=== PATIENT | female | born 1960 | race Two or more races ===

== ENCOUNTER 2024-02-24 10:38 | Outpatient (REF) | payer MEDICAID, SELFPAY ==
[2024-02-24 14:45] LABS: MANUAL DIFF FLAG NO
[2024-02-24 14:51] LABS: Basophils Percent Auto 0.7 % (0-2); Eosinophils Absolute Auto 0.1 X10*3/uL (0.0-0.4); Eosinophils Percent Auto 1.4 % (0-4); Hematocrit 41.8 % (37.0-47.0); Hemoglobin 13.7 g/dl (12.0-16.0); Imm Gran Abs Auto 0.01 X10*3/uL (0.00-0.03); Imm Gran Pct Auto 0.2 % (0.0-0.4); Lymphocytes Absolute Auto 1.1 X10*3/uL (1.2-4.9); Lymphocytes Percent Auto 18.4 % (20-40); Mean Corpuscular HGB Conc 32.8 g/dl (31.0-35.0); Mean Corpuscular Volume 91.5 fL (80.0-98.0); Mean Platelet Volume 10.9 fL (9.4-12.3); Monocytes Absolute Auto 0.4 X10*3/uL (0.1-1.2); Monocytes Percent Auto 6.3 % (2-11); Neutrophils Absolute Auto 4.3 x10*3/uL (2.0-8.3); Platelet Count 179 X10*3/uL (160-400); Red Blood Count 4.57 X10*6/uL (4.20-5.50); White Blood Count 5.9 X10*3/uL (4.8-10.8)
[2024-02-24 16:39] LABS: Alanine Aminotransferase 18 U/L (0-31); Alkaline Phosphatase 57 U/L (39-117); Anion Gap 12 (12-20); Aspartate Amino Transferase 24 U/L (5-31); Bilirubin Total 0.5 mg/dL (0.0-1.0); Blood Urea Nitrogen 24 mg/dL (9-16); Carbon Dioxide 28 mmol/L (22-29); Chloride 106 mmol/L (96-108); Cholesterol 330 mg/dL (<200); Estimated Glomerular Filt Rate 54; Glucose Random 93 mg/dL (60-115); HDL Cholesterol 60 mg/dL (>40); LDL Cholesterol Calculated 240 mg/dL (<100); Sodium 141 mmol/L (135-145); TSH reflex Free T4 1.09 uIU/mL (0.32-4.0); Triglycerides 150 mg/dL (<150)
[2024-02-25 03:57] LABS: HIV AB/AG Nonreactive (Nonreactive); HIV Num 1 0.05 S/CO (0.00-0.99); ~HepC Num1 0.08 S/CO (0.00-0.79); ~Hepatitis C Antibody Nonreactive (Nonreactive)
== END 2024-02-24 10:39 | disposition home or self-care (01) ==
LOC: HO.CHCLDS 10:38
PROVIDERS: Visit Provider Internal Medicine
DX: Z00.00 Encounter for general adult medical examination without abnormal findings (principal)
CPT/HCPCS: 36415; 80053; 80061; 84443; 85025; 86803; 87389

== ENCOUNTER 2024-04-29 10:55 | Outpatient (REF) | payer MEDICAID, SELFPAY ==
[2024-04-29 14:48] LABS: Cholesterol 298 mg/dL (<200); HDL Cholesterol 57 mg/dL (>40); LDL Cholesterol Calculated 220 mg/dL (<100); Triglycerides 105 mg/dL (<150)
== END 2024-04-29 10:56 | disposition home or self-care (01) ==
LOC: HO.CHCLDS 10:55
PROVIDERS: Visit Provider Internal Medicine
DX: E78.00 Pure hypercholesterolemia, unspecified (principal)
CPT/HCPCS: 36415; 80061

== ENCOUNTER 2024-05-07 16:26 | Outpatient (REF) | payer MEDICAID, SELFPAY | END 2024-05-07 16:27 | disposition home or self-care (01) | LOC: HO.CHCLNP 16:26 | PROVIDERS: Visit Provider Internal Medicine | DX: J02.9 Acute pharyngitis, unspecified (principal) | CPT/HCPCS: 87070 ==

== ENCOUNTER 2024-05-20 13:50 | Outpatient (REF) | payer MEDICAID, SELFPAY ==
[2024-05-20 14:40] LABS: MANUAL DIFF FLAG NO
[2024-05-20 14:43] LABS: Basophils Absolute Auto 0.1 X10*3/uL (0.0-0.2); Basophils Percent Auto 0.6 % (0-2); Eosinophils Absolute Auto 0.1 X10*3/uL (0.0-0.4); Eosinophils Percent Auto 1.6 % (0-4); Hematocrit 39.2 % (37.0-47.0); Hemoglobin 12.7 g/dl (12.0-16.0); Imm Gran Abs Auto 0.02 X10*3/uL (0.00-0.03); Imm Gran Pct Auto 0.2 % (0.0-0.4); Lymphocytes Absolute Auto 1.7 X10*3/uL (1.2-4.9); Lymphocytes Percent Auto 20.8 % (20-40); Mean Corpuscular HGB Conc 32.4 g/dl (31.0-35.0); Mean Corpuscular Hemoglobin 28.9 pg (27.0-33.0); Mean Corpuscular Volume 89.1 fL (80.0-98.0); Mean Platelet Volume 9.9 fL (9.4-12.3); Monocytes Absolute Auto 0.6 X10*3/uL (0.1-1.2); Monocytes Percent Auto 7.2 % (2-11); Neutrophils Absolute Auto 5.6 x10*3/uL (2.0-8.3); Neutrophils Percent Auto 69.6 % (45-73); Platelet Count 255 X10*3/uL (160-400); Red Cell Distribution Width 11.6 % (11.0-16.0)
[2024-05-20 15:21] LABS: Erythrocyte Sedimentation Rate 67 MM/HR (0-20)
[2024-05-20 15:43] LABS: TSH reflex Free T4 < 0.01 uIU/mL (0.32-4.0)
--- OUTSIDE RECORDS SUMMARY | 2024-05-20 16:05 | XMS_ITS | Encounter Summary ---
Author Organization [employer] Address [address] 7[address] [place] [address] Care Team Providers Care Pediatrician Name Role Phone Shahana Kidd MD Primary Care Provider [phone] Reason for Visit * Reason Onset Date Comments Results 05/13/2024 Encounter Details Date Type Department Care Team ([facility] st Contact Info) Description 05/13/2024 Telephone [facility] MED & PEDS [address] [place] [address] Grisel Anton, HERMILO Results Social History Tobacco Use Types Packs/Day Years Used Date Smoking Tobacco: Never Smokeless Tobacco: Never Alcohol Use Standard Drinks/Week Comments Never 0 (1 standard drink = 0.6 oz pur e alcohol) Alcohol Answer Date Recorded Q1: How often do you have a drink containing alc ohol? 2 02/19/2024 Q2: How many drinks containi ng alcohol do you have on a typical day when you are drinking? 0 02/19/2024 Q3: How often do you have six or more drinks on one occasion? 1 02/19/2024 Depression Answer Date Recorded Patient Health Questionnaire-9 Score 2 02/19/2024 Patient Health Questionnaire-9 Score 2 02/19/2024 Last PHQ-9: Questionnaire Data Not on file 1 Housing Stability Answer Date Recorded What is your housing situation today? Not on jayson e 02/19/[address] you li ve. Do you have problems with any of the following? None of the above 02/19/2024 Food Insecurity Answer Date Recorded Within the past 12 months, y ou worried that your food would run out before you got money to buy more: Never True 02/19/2024 Within the past 12 months,th e food you bought just didn't last and you didn't have enough money to get more: Never True Transportation Answer Date Recorded In the past 12 months, has l ack of transportation kept you from medical appts, meetings, work or from getting things needed for daily living? No 02/19/2024 Utilities Answer Date Recorded In the past 12 months, has t he electric, gas, oil or water company threatened to shut off services in your home? No 02/19/2024 Depression Answer Date Recorded Patient Health Questionnaire-2 Score 1 02/19/2024 Internet Access Answer Date Recorded Internet Access Q1 Yes 02/19/2024 Internet Access Q2 Not on file 02/19/2024 Comments Unknown Sex and Gender Information Value Date Recorded Sex Assigned at Female 02/19/2022 10:22 AM EDT Legal Sex Female 10:22 AM EDT Gender Identity Female 02/19/2022 10:22 AM EDT Sexual Orientation Straight 02/19/2022 10 :22 AM EDT documented as of this encounter Miscellaneous Notes * Telephone Encounter - Grisel Anton RN - 05/13/2024 3:57 PM EST TC placed to pt and LVM to call back the office in regards to result message below ----- Message from Celsa Velarde MD sent at 05/13/2024 2:00 PM EST ----- Please inform Kandy her throat culture did not demonstrate a strep throat infection. documented in this encounter Plan of Treatment Not on file documented as of this encounter Visit Diagnoses Not on filedocumented in this encounter Additional Health Concerns Assessment Noted Time PHQ-9 Depression Total Score: 2 02/19/20 24 10:03 AM EDT documented as of this encounter Care Teams Pediatrician Relationship Specialty Start Date End Date Shahana Kidd MD [address] [place] [phone] PCP - General Internal Medicine 06/13/20 documented as of this encounter
--- OUTSIDE RECORDS SUMMARY | 2024-05-20 16:05 | XMS_ITS | Encounter Summary ---
Author Organization [employer] Address [address] [facility] 7 [place] [address] Care Team Providers Care Appellate Court Judge Name Role Phone Shahana Kidd MD Primary Care Provider [phone] Encounter Details Date Type Department Care Team (Latest Contact Info) Description 02/25/[address] [facility] CH[facility] MED & PEDS [address] [place], [place] [phone] Shahana Kidd MD [address] [place] [address] Hypercholesterolemia (Primary Dx) Social History Tobacco Use Types Packs/Day Years [...] AM EDT documented as of this encounter Plan of Treatment Not on file documented as of this encounter Procedures Procedure Name Priority Date/Time Associated Diagnosis Comments LIPID PANEL, STANDARD Routine 04/29/2024 10:56 AM EST Hypercholesterolemi a documented in this encounter Results * (ABNORMAL) Lipid Panel, Standard (04/29/2024 10:56 AM EST) Triglycerides 105 <150 mg/dL [facility] Comment:Desirable Triglyceri de: less than 150 mg/dLBorderline High Triglyceride 150-199 mg/dLHigh Triglyceride: 200-499 mg/dLVery High Triglyceride: greater than or equal to 5OO mg/dL Cholesterol 298(H) <200 mg/dL [facility] Comment:Desirable Cholestero l: less than 200 mg/dLBorderline High Cholesterol: 200-239 mg/dLHigh Cholesterol: greater than 239 mg/dL LDL Cholesterol Calculated 220(H) <100 mg/dL [facility] Comment:Desirable LDL: less than 100 mg/dLNear Optimal/Above Optimal LDL: 110- 129 mg/dLBorderline High LDL: 130-159 mg/dLHigh LDL: 160-189 mg/dLVery High LDL: greater than or equal to 190 mg/dL HDL Cholesterol 57 >40 mg/dL [facility] Comment:Desirable HDL: great er than 40 mg/dL Note: This HDL assay may give artificially low results in patients with liver disease. Blood Venous blood specimen / Unknown 04/29/2024 10:56 AM EST 04/29/2024 2:17 PM EST us Shahana Kidd MD LAB BLOOD ORDERABLES Final Result [facility] [address] [place] [address] [phone] documented in this encounter Visit Diagnoses Diagnosis Hypercholesterolemia- Primary Pure hypercholesterolemia documented in this encounter Additional Health Concerns Assessment Noted Time PHQ-9 Depression Total Score: 2 02/19/20 24 10:03 AM EDT documented as of this encounter Care Teams Appellate Court Judge Relationship Specialty Start Date End Date Shahana Kidd MD [address] [place] [phone] PCP - General Internal Medicine 06/13/20 documented as of this encounter
--- OUTSIDE RECORDS SUMMARY | 2024-05-20 16:05 | XMS_ITS | Encounter Summary ---
Author Organization [employer] Address [address] [facility] 7 [place] [address] Care Team Providers Care Sdv Pilot/Navigator/Dds Operator Name Role Phone Shahana Kidd MD Primary Care Provider [phone]- [phone] Encounter Details Date Type Department Care Team ([facility] st Contact Info) Description 10/03/2023 Orders Only [facility] CH[facility] MED & PEDS [address] [place], [place] [phone] Shahana Kidd MD [address] [place] [address] Allergy, subsequent encounter Social History Tobacco Use Types Packs/Day Years Used Date Smoking Tobacco: Never Smokeless Tobacco: Never Alcohol Use Standard Drinks/Week Comments Never 0 (1 standard drink = 0.6 oz pur e alcohol) Alcohol Answer Date Recorded How often do you have a drink containing alcohol ? 0 04/24/2022 How many drinks containing a lcohol do you have on a typical day when you are drinking? 0 04/24/2022 How often do you have six or more drinks on one occasion? 0 04/24/2022 Depression Answer Date Recorded Patient Health Questionnaire-9 Score 0 04/24/2022 Depression Answer Date Recorded Patient Health Questionnaire-2 Score 0 04/24/2022 Comments Unknown Sex and Gender Information Value Date Recorded Sex Assigned at Female 02/19/2022 10:22 AM EDT Legal Sex Female 10:22 AM EDT Gender Identity Female 02/19/2022 10:22 AM EDT Sexual Orientation Straight 02/19/2022 10 :22 AM EDT documented as of this encounter Plan of Treatment Not on file documented as of this encounter Visit Diagnoses Diagnosis Allergy, subsequent encounter documented in this encounter Additional Health Concerns Assessment Noted Time PHQ-9 Depression Total Score: 0 04/24/19 9:38 AM EST documented as of this encounter Care Teams Sdv Pilot/Navigator/Dds Operator Relationship Specialty Start Date End Date Shahana Kidd MD [address] [place] [address] PCP - General Internal Medicine 06/13/20 documented as of this encounter
--- OUTSIDE RECORDS SUMMARY | 2024-05-20 16:05 | XMS_ITS | Clinical Summary ---
Author Organization [facility] [facility] it Address [address] [place] [address] Care Team Providers Care Cytologist Name Role Phone Unavailable Primary Care Provider Unavailabl e Social History Tobacco Use Types Packs/Day Years Used Date Smoking Tobacco: Never Assessed Sex and Gender Information Value Date Recorded Sex Assigned at Not on file Gender Identity Not on file Sexual Orientation Not on file Plan of Treatment Health Maintenance Due Date Last Done Comments Breast Cancer Screening 1960 DTaP,Tdap,and Td Vaccines (1 - Tdap) 07/28/1979 Cervical Cancer Screening: P ap Smear 1981 Zoster Vaccines (1 of 2) 2010 COVID-19 Vaccine (2023-2 5 season) 2023 Influenza Vaccine (#1) 2023 RSV Immunization Patients 60 + Years Old (1 - 1-dose 75+ series) 07/28/2035 HIB Vaccines Aged Out No longer eligi ble based on patient's age to complete this topic HPV Vaccines Aged Out No longer eligi ble based on patient's age to complete this topic Hepatitis A Vaccines Aged Out No long er eligible based on patient's age to complete this topic Hepatitis B Vaccines Aged Out No long er eligible based on patient's age to complete this topic IPV Vaccines Aged Out No longer eligi ble based on patient's age to complete this topic MMR Vaccines Aged Out No longer eligi ble based on patient's age to complete this topic Meningococcal ACWY Vaccine Aged Out N o longer eligible based on patient's age to complete this topic Pneumococcal Vaccine: Pediat rics (0 to 5 Years) and At-Risk Patients (6 to 64 Years) Aged Out No longer eligible b ased on patient's age to complete this topic RSV Immunization Patients Un omi 20 months Aged Out No longer eligible b ased on patient's age to complete this topic Varicella Vaccines Aged Out No longer eligible based on patient's age to complete this topic
--- OUTSIDE RECORDS SUMMARY | 2024-05-20 16:05 | XMS_ITS | Encounter Summary ---
Author Organization [employer] Address [address] [place] [address] [place] [address] Care Team Providers Care Information Services Consultant Name Role Phone Shahana iKdd MD Primary Care Provider [phone] Reason for Visit * Reason Comments Med Refill Encounter Details Date Type Department Care Team ([facility] st Contact Info) Description 06/28/2023 Refill [facility] CHC MED & PEDS [address] [place] [address] Shahana Kidd MD [address] [place] [address] Allergy, subsequent encounter Social History Tobacco Use [...] Time PHQ-9 Depression Total Score: 0 04/24/19 23 9:38 AM EST documented as of this encounter Care Teams Information Services Consultant Relationship Specialty Start Date End Date Shahana Kidd MD [address] [place] [phone] PCP - General Internal Medicine 06/13/20 documented as of this encounter
--- OUTSIDE RECORDS SUMMARY | 2024-05-20 16:06 | XMS_ITS | Encounter Summary ---
Author Organization [employer] Address [address] [facility] 7 [place] [address] Care Team Providers Care Speech And Language Specialist Name Role Phone Shahana Kidd MD Primary Care Provider [phone]- [phone] Encounter Details Date Type Department Care Team (Latest Contact Info) Description 05/01/2024 Orders Only [facility] CHC MED & PEDS [address] [place], [place] [phone] Shahana Kidd MD [address] [place] [address] Hypercholesterolemia (Primary Dx) Social History Tobacco Use [...] as of this encounter Plan of Treatment Scheduled Orders Name Type Priority Associated Diagnoses Orde r Schedule Lipid Panel, Standard Lab Routine Hypercholesterolemia Expected: 05/01/2024 (Approximate), Expires: 05/01/2025 documented as of this encounter Visit Diagnoses Diagnosis Hypercholesterolemia- Primary Pure hypercholesterolemia documented in this encounter Additional Health Concerns Assessment Noted Time PHQ-9 Depression Total Score: 2 02/19/20 24 10:03 AM EDT documented as of this encounter Care Teams Speech And Language Specialist Relationship Specialty Start Date End Date Shahana Kidd MD [address] [place] [phone] PCP - General Internal Medicine 06/13/20 documented as of this encounter
--- OUTSIDE RECORDS SUMMARY | 2024-05-20 16:06 | XMS_ITS | Encounter Summary ---
Author Organization [employer] Address [address] [facility] [address] 7[address] [place] [address] Care Team Providers Care Ed Case Manager Name Role Phone Shahana Kidd MD Primary Care Provider +1 [phone] Encounter Details Date Type Department Care Team (Latest Contact Info) Description 05/20/2024 Travel Social History Tobacco Use Types Packs/Day Years [...] documented as of this encounter Care Teams Ed Case Manager Relationship Specialty Start Date End Date Shahana Kidd MD [address] [place] [phone] PCP - General Internal Medicine 06/13/20 documented as of this encounter
--- OUTSIDE RECORDS SUMMARY | 2024-05-20 16:06 | XMS_ITS | Encounter Summary ---
Author Organization [employer] Address [address] [facility] 7 [place] [address] Care Team Providers Care Fertilizer Applicator Name Role Phone Shahana Kidd MD Primary Care Provider [phone]- [phone] Reason for Visit * Reason Onset Date Comments Lab Results 05/01/2024 Encounter Details Date Type Department Care Team (Late st Contact Info) Description 05/01/2024 Telephone [facility] [address] [place] [address] Shahana Kidd MD [address] [place], [place] [phone] Lab Results Social History Tobacco Use Types Packs/Day [...] encounter Miscellaneous Notes * Telephone Encounter - Karyn Santoyo RN - 05/01/2024 1:22 PM EST TC to pt re below message from Dr Kidd : Please call. Labs reviewed. Very high cholesterol. The dose of atorvastatin will be increased to 80 mg once a day. Repeat lipid panel in 3 months. No answer, message left requesting call back. documented in this encounter Plan of Treatment Not on file documented as of this encounter Visit Diagnoses Not on filedocumented in this encounter Additional Health Concerns Assessment Noted Time PHQ-9 Depression Total Score: 2 02/19/20 24 10:03 AM EDT documented as of this encounter Care Teams Fertilizer Applicator Relationship Specialty Start Date End Date Shahana Kidd MD [address] [place] [phone] PCP - General Internal Medicine 06/13/20 documented as of this encounter
--- OUTSIDE RECORDS SUMMARY | 2024-05-20 16:06 | XMS_ITS | Encounter Summary ---
Author Organization [employer] Address [address] [place] [address] [place] [address] Care Team Providers Care Feed Inspection Supervisor Name Role Phone Shahana Kidd MD Primary Care Provider [phone]- [phone] Reason for Referral * Imaging (Routine) - Authorized Specialty Diagnoses / Procedures Referred By Contac t Referred To Contact Radiology Diagnoses Tenderness of neck Procedures US Head Neck Soft Tissue Shahana Kidd MD [address] [place] [phone] Phone: tel: fax: [facility] [address] [place] [phone] Phone: tel: fax: Referral ID Status Reason Start Date Expiration Date V isits Requested Visits Authorized [id number] Authorized 05/20/2024 05/20/2025 1 1 Reason for Visit * Reason Comments Neck Pain Encounter Details Date Type Department Care Team ([facility] st Contact Info) Description 05/20/2024 1:20 PM EST Office Visit [facility] CHC MED & PEDS [address] [place], [place] [phone] Shahana Kidd MD [address] [place] [phone] Tenderness of neck (Primary Dx) Social History Tobacco Use Types [...] AM EDT documented as of this encounter Last Filed Vital Signs Vital Sign Reading Time Taken Comments Blood Pressure 118/72 05/20/2024 1:10 PM EST Pulse 71 05/20/2024 1:10 PM EST Temperature 36.7 ??C (98 ??F) 05/20/2024 1:10 PM EST Respiratory Rate 20 05/20/2024 1:10 PM EST Oxygen Saturation 98% 05/20/2024 1:10 PM EST Inhaled Oxygen Concentration - - Weight 69.4 kg (153 lb) 05/20/2024 1:10 PM EST Height 160 cm (5' 3 ) 05/20/2024 1:10 PM EST Body Mass Index 27.1 05/20/2024 1:10 PM EST documented in this encounter Plan of Treatment Scheduled Orders Name Type Priority Associated Diagnoses Orde r Schedule US Head Neck Soft Tissue Imaging Routine Tenderness of neck Expected: 05/20/2024, Expires: 05/20/2025 documented as of this encounter Procedures Procedure Name Priority Date/Time Associated Diagnosis Comments TSH W/REFLEX TO FT4 Routine 05/20/2024 1 :51 PM EST Tenderness of neck CBC WITH AUTO DIFFERENTIAL Routine 05/20/2024 1:51 PM EST Tenderness of neck SED RATE BY MODIFIED WESTERGREN Routine 05/20/2024 1:51 PM EST Tenderness of neck C-REACTIVE PROTEIN Routine 05/20/2024 1: 51 PM EST Tenderness of neck documented in this encounter Results * (ABNORMAL) TSH W/Reflex to FT4 (05/20/2024 1:51 PM EST) TSH reflex Free T4 <0.01(L) 0.32 - 4.0 uIU/mL [facility] Blood Venous blood specimen / Unknown 05/20/2024 1:51 PM EST 05/20/2024 2:37 PM EST us Shahana Kidd MD LAB BLOOD ORDERABLES Final Result [facility] [address] [place] [phone] * (ABNORMAL) C-reactive Protein (05/20/2024 1:51 PM EST) [facility] C Reactive Protein 4.00(H) < or = 0.50 mg/dL [facility] Blood Venous blood specimen / Unknown 05/20/2024 1:51 PM EST 05/20/2024 2:37 PM EST Shahana Kidd MD LAB BLOOD ORDERABLES Final Result Performing Organization Address [facility] Co de Phone Number [facility] [address] [place] [phone] * (ABNORMAL) Sed Rate by Modified Harsharen (05/20/2024 1:51 PM EST) [facility] Erythrocyte Sedimentation Rate 67(H) 0 - 20 MM/HR [facility] Comment:Patients with polycy themia and many hemoglobin abnormalitiesmay have depressed sed rates whereas patients with anemiamay have elevated sed rates. Blood Venous blood specimen / Unknown 05/20/2024 1:51 PM EST 05/20/2024 2:37 PM EST us Shahana Kidd MD LAB BLOOD ORDERABLES Final Result Performing Organization Address [facility] de Phone Number [facility] [address] [place] [phone] * CBC auto differential (05/20/2024 1:51 PM EST) [facility] White Blood Count 8.0 4.8 - 10.8 X10*3/uL [facility] Red Blood Count 4.40 4.20 - 5.50 X10*6/uL [facility] Hemoglobin 12.7 12.0 - 16.0 g/dl [facility] Hematocrit 39.2 37.0 - 47.0 % [facility] Mean Corpuscular Volume 89.1 80.0 - 98.0 fL [facility] Mean Corpuscular Hemoglobin 28.9 27.0 - 33.0 pg [facility] Mean Corpuscular HGB Conc 32.4 31.0 - 35.0 g/dl [facility] Red Cell Distribution Width 11.6 11.0 - 16.0 % [facility] Platelet Count 255 160 - 400 X10*3/uL [facility] Mean Platelet Volume 9.9 9.4 - 12.3 fL [facility] Neutrophils Percent Auto 69.6 45 - 73 % [facility] Imm Gran Pct Auto 0.2 0.0 - 0.4 % [facility] Lymphocytes Percent Auto 20.8 20 - 40 % [facility] Monocytes Percent Auto 7.2 2 - 11 % [facility] Eosinophils Percent Auto 1.6 0 - 4 % [facility] Basophils Percent Auto 0.6 0 - 2 % [facility] NRBC Pct Auto 0.0 0.0 - 0.2 /100WBC [facility] Neutrophils Absolute Auto 5.6 2.0 - 8.3 x10*3/uL [facility] Imm Gran Abs Auto 0.02 0.00 - 0.03 X10*3/uL [facility] Lymphocytes Absolute Auto 1.7 1.2 - 4.9 X10*3/uL [facility] Monocytes Absolute Auto 0.6 0.1 - 1.2 X10*3/uL [facility] Eosinophils Absolute Auto 0.1 0.0 - 0.4 X10*3/uL [facility] Basophils Absolute Auto 0.1 0.0 - 0.2 X10*3/uL [facility] NRBC Abs Auto 0.000 0.0 - 0.012 X10*3/uL [facility] Blood Venous blood specimen / Unknown 05/20/2024 1:51 PM EST 05/20/2024 2:37 PM EST us Shahana Kidd MD LAB BLOOD ORDERABLES Final Result [facility] [address] [place] [address] [phone] documented in this encounter Visit Diagnoses Diagnosis Tenderness of neck- Primary documented in this encounter Additional Health Concerns Assessment Noted Time PHQ-9 Depression Total Score: 2 02/19/20 24 10:03 AM EDT documented as of this encounter Care Teams Feed Inspection Supervisor Relationship Specialty Start Date End Date Shahana Kidd MD [address] [place] [phone] PCP - General Internal Medicine 06/13/20 documented as of this encounter
--- OUTSIDE RECORDS SUMMARY | 2024-05-20 16:06 | XMS_ITS | Clinical Summary ---
Author Organization [employer] Address [address] [facility] [address] [place] [address] Care Team Providers Care Enamel Burner Name Role Phone Shahana Kidd MD Primary Care Provider [phone] Allergies No known active allergies Medications cetirizine (ZyrTEC) 10 MG tabletIndicatio ns:Allergy, subsequent encounter Take 1 tablet (10 mg) by mouth Once per day. 30 tablet 10/03/19 24 025 Active fluticasone (Flonase) 50 MCG/ACT nasal sprayIndication s:Allergy, subsequent encounter Administer 1 spray into each nostril 2 times daily. Shake gently. Before first use, prime pump. After use, clean tip and replace cap. 16 g 10/03/19 24 Active atorvastatin (Lipitor) 80 MG tabletIndicatio ns:Hypercholest erolemia Take 1 tablet (80 mg) by mouth Once per day. 30 tablet 05/01/19 25 026 Active naproxen (Naprosyn) 500 MG tabletIndicatio ns:Tenderness of neck Take 1 tablet (500 mg) by mouth 2 times daily. 60 tablet 05/20/19 25 025 Active atorvastatin (Lipitor) 40 MG tabletIndicatio ns:Hypercholest erolemia Take 1 tablet (40 mg) by mouth Once per day. 30 tablet 02/25/20 24 025 Discontinued amoxicillin-cla vulanate (Augmentin) 875-125 MG tabletIndicatio ns:Acute otitis externa of left ear, unspecified type Take 1 tablet by mouth 2 times daily for 5 days. 10 tablet 05/07/19 25 025 Active Problems Problem Noted Date Diagnosed Date Hypercholesterolemia 02/25/2024 Allergy 11/05/1992 Encounters Date Type Department Care Team Description 05/20/2024 1:20 PM EST Office Visit [facility] [address] [place] [address] Shahana Kidd MD Tenderness of neck (Primary Dx) 05/20/2024 Travel 05/13/2024 Telephone [facility] [address] [place] [address] Grisel Anton RN Results 05/07/2024 2:00 PM EST Office Visit [facility] [address] [place] [address] Celsa Velarde MD Acute otitis externa of left ear, unspecified type (Primary Dx); Pharyngitis, unspecified etiology 05/07/2024 Travel 05/01/2024 Telephone [facility] [address] [place] [address] Shahana Kidd MD Lab Results 05/01/2024 Orders Only [facility] [address] [place] [address] Shahana Kidd MD Hypercholesterolemia (Primary Dx) 02/25/2024 Telephone [facility] [address] [place] [address] Shahana Kidd MD Lab Results 02/25/2024 Orders Only [facility] [address] [place] [address] Shahana Kidd MD Hypercholesterolemia (Primary Dx) 02/19/2024 10:00 AM EDT Office Visit [facility] [address] [place] [address] Shahana Kidd MD Annual physical exam (Primary Dx); Encounter for screening mammogram for breast cancer; Screening for colon cancer; Encounter for immunization 02/19/2024 Travel from Last 3 Months Immunizations Name Administration Dates Next Due Influenza injectable quadrivalent preservative f ree 02/19/2018 Influenza, Split (incl. purified surface antigen ) 04/02/2013 Influenza, seasonal, injectable, preservative fr ee 02/19/2024,04/24/2022 Moderna Covid-19 Vaccine 6+ Bivalent 05/28/2022 Tdap 05/15/2021,09/20/2009 Family History Medical History Relation Name Comments Lung cancer Father Bone cancer Father's Sister Relation Name Status Comments Father Father's Sister Social History Tobacco Use Types Packs/Day Years Used Date Smoking Tobacco: Never Smokeless Tobacco: Never Tobacco Cessation:Counseling Given: No Alcohol Use Standard Drinks/Week Comments Never 0 [...] Orientation Straight 02/19/2022 10 :22 AM EDT Last Filed Vital Signs Vital Sign Reading [...] Mass Index 27.1 05/20/2024 1:10 PM EST Plan of Treatment Health Maintenance Due Date Last Done Comments CT Colonography 1960 Colonoscopy 1960 FIT 1960 FOBT 1960 SDOH Screening 1960 Sigmoidoscopy 1960 Mammogram 2000 Pneumococcal Vaccine: 50+ Years (1 of 1 - PCV) 2010 Zoster Vaccines (1 of 2) 2010 COVID-19 Vaccine ( season) 2023 05/28/2022, 04/27/2021, 08/10/2020, Additional history exists Alcohol/Substance Use Screening 02/18/2025 02/19/2024 Depression Screening 02/18/2025 02/19/2024, 02/19/20 24 Pap Smear 05/08/2025 05/08/2022 Tobacco Screening 05/20/2025 05/20/2024 Colorectal Cancer Screening 04/29/2027 FIT DNA/Cologuard 04/29/2027 04/29/2024 Cervical Cancer Screening 05/08/2027 HPV/Cotest 05/08/2027 05/08/2022 DTaP/Tdap/Td Vaccines (3 - Td or Tdap) 05/15/2031 05/15/2021, 09/20/2009 RSV Patients and Patients Aged 60 years or older (1 - 1-dose 75+ series) 07/28/2035 Influenza Vaccine Completed 02/19/2024, , 02/19/2018, Additional history exists HIV Screening Completed 02/24/2024, 05/15/2021 Hepatitis C Screening Completed 02/24/2024, 022 HIB Vaccines Aged Out No longer eligi [...] patient's age to complete this topic Meningococcal Vaccine Aged Out No damaso carmen eligible based on patient's age to complete this topic RSV under 20 months Aged Out No longe r eligible based on patient's age to complete this topic Rotavirus Vaccines Aged Out No longer eligible based on patient's age to complete this topic Procedures Procedure Name Priority Date/Time Associated Diagnosis Comments TSH W/REFLEX TO FT4 Routine 05/20/2024 1 :51 PM EST Tenderness of neck C-REACTIVE PROTEIN Routine 05/20/2024 1: 51 PM EST Tenderness of neck SED RATE BY MODIFIED WESTERGREN Routine 05/20/2024 1:51 PM EST Tenderness of neck CBC WITH AUTO DIFFERENTIAL Routine 05/20/2024 1:51 PM EST Tenderness of neck CULTURE, THROAT Routine 05/07/2024 3:36 PM EST Pharyngitis, unspecified etiology POC HERNÁNDEZ ID NOW STREP A Routine 05/07/2024 3:05 PM EST Pharyngitis, unspecified etiology POCT RAPID COVID ANTIGEN Routine 05/07/2024 3:05 PM EST Pharyngitis, unspecified etiology LIPID PANEL, STANDARD Routine 04/29/2024 10:56 AM EST Hypercholesterolemi a LAB COLOGUARD?? COLON CANCER SCREEN Routine 04/29/2024 8:15 AM EST Screening for colon cancer HEPATITIS C AB W/REFL TO HCV RNA, QN, PCR Routine 02/24/2024 10:41 AM EST Annual physical exam HIV 1/2 ANTIGEN/ANTIBODY, FOURTH GENERATION W/RFL Routine 02/24/2024 10:41 AM EST Annual physical exam CBC WITH AUTO DIFFERENTIAL Routine 02/24/2024 10:41 AM EST Annual physical exam TSH W/REFLEX TO FT4 Routine 02/24/2024 9 :42 AM EST Annual physical exam LIPID PANEL, STANDARD Routine 02/24/2024 9:42 AM EST Annual physical exam COMPREHENSIVE METABOLIC PANEL Routine 02/24/2024 9:42 AM EST Annual physical exam THINPREP PAP AND HPV MRNA E6/E7 Routine 05/08/2022 12:00 AM EST from Last 3 Months or Most Recently Relevant to Health Maintenance Results * (ABNORMAL) TSH W/Reflex to FT4 (05/20/2024 1:51 PM EST) Only the most recent of2 resultswithin the time period is included. TSH reflex Free T4 <0.01(L) 0.32 - 4.0 uIU/mL [facility] Blood Venous blood specimen / Unknown 05/20/2024 1:51 PM EST 05/20/2024 2:37 PM EST us Shahana Kidd MD LAB BLOOD ORDERABLES Final Result [facility] [address] [place] [address] [phone] * CBC auto differential (05/20/2024 1:51 PM EST) Only the most recent of2 resultswithin the time period is included. White Blood Count 8.0 4.8 - 10.8 X10*3/uL [facility] Red Blood Count 4.40 4.20 - 5.50 X10*6/uL [facility] Hemoglobin 12.7 12.0 - 16.0 g/dl [facility] Hematocrit 39.2 37.0 - 47.0 % [facility] Mean Corpuscular Volume 89.1 80.0 - 98.0 fL [facility] Mean Corpuscular Hemoglobin 28.9 27.0 - 33.0 pg [facility] Mean Corpuscular HGB Conc 32.4 31.0 - 35.0 g/dl [facility] Red Cell Distribution Width 11.6 11.0 - 16.0 % [facility] Platelet Count 255 160 - 400 X10*3/uL [facility] Mean Platelet Volume 9.9 9.4 - 12.3 fL [facility] Neutrophils Percent Auto 69.6 45 - 73 % [facility] Imm Gran Pct Auto 0.2 0.0 - 0.4 % [facility] Lymphocytes Percent Auto 20.8 20 - 40 % [facility] Monocytes Percent Auto 7.2 2 - 11 % [facility] Eosinophils Percent Auto 1.6 0 - 4 % [facility] Basophils Percent Auto 0.6 0 - 2 % [facility] NRBC Pct Auto 0.0 0.0 - 0.2 /100WBC [facility] Neutrophils Absolute Auto 5.6 2.0 - 8.3 x10*3/uL [facility] Imm Gran Abs Auto 0.02 0.00 - 0.03 X10*3/uL [facility] Lymphocytes Absolute Auto 1.7 1.2 - 4.9 X10*3/uL [facility] Monocytes Absolute Auto 0.6 0.1 - 1.2 X10*3/uL [facility] Eosinophils Absolute Auto 0.1 0.0 - 0.4 X10*3/uL [facility] Basophils Absolute Auto 0.1 0.0 - 0.2 X10*3/uL [facility] NRBC Abs Auto 0.000 0.0 - 0.012 X10*3/uL [facility] Blood Venous blood specimen / Unknown 05/20/2024 1:51 PM EST 05/20/2024 2:37 PM EST us Shahana Kidd MD LAB BLOOD ORDERABLES Final Result Performing Organization Address [facility] Co de Phone Number [facility] [address] [place] [address] [phone] * (ABNORMAL) Sed Rate by Modified Jonnyergren (05/20/2024 1:51 PM EST) Erythrocyte Sedimentation Rate 67(H) 0 - 20 MM/HR [facility] Comment:Patients with polycy themia and many hemoglobin abnormalitiesmay have depressed sed rates whereas patients with anemiamay have elevated sed rates. Blood Venous blood specimen / Unknown 05/20/2024 1:51 PM EST 05/20/2024 2:37 PM EST us Shahana Kidd MD LAB BLOOD ORDERABLES Final Result Performing Organization Address City/[facility]/ZIP Co de Phone Number [facility] [address] [place] [phone] * (ABNORMAL) C-reactive Protein (05/20/2024 1:51 PM EST) C Reactive Protein 4.00(H) < or = 0.50 mg/dL [facility] Blood Venous blood specimen / Unknown 05/20/2024 1:51 PM EST 05/20/2024 2:37 PM EST Shahana Kidd MD LAB BLOOD ORDERABLES Final Result Performing Organization Address [facility]/ZIP Co de Phone Number [facility] [address] [place] [phone] * Culture, Throat (05/07/2024 3:36 PM EST) Throat Structure of anterior portion of neck / Unknown 05/07/2024 3:36 PM EST 05/07/2024 5:50 PM EST Comment:Throat Narrative [facility] - 05/09/2024 8:40 AM EST Throat Culture No Group A Beta-hemolytic Streptococci isolated. Specimen Source: Throat Celsa Velarde MD LAB MICROBIOLOGY - GENERAL OR DERABLES Final Result Performing Organization Address [facility] Co de Phone Number [facility] [address] [place] [phone] * POCT rapid strep A manually resulted (05/07/2024 3:05 PM EST) Rapid Strep A Screen Negative Negative, None Detected QC Media Lot # Comment:[id number] Lot# Expiration Date Comment: Swab 05/07/2024 3:05 PM EST Celsa Velarde MD POINT OF CARE TEST ENTER/EDIT ORDERABLES Final Result * POCT Rapid COVID Ag (05/07/2024 3:05 PM EST) Rapid COVID Ag Negative QC Media Lot # Comment:[id number] Lot# Expiration Date Comment:07/07/2025 Swab 05/07/2024 3:05 PM EST Celsa Velarde MD POINT OF CARE TEST ENTER/EDIT ORDERABLES Final Result * (ABNORMAL) Lipid Panel, Standard (04/29/2024 10:56 AM EST) Only the most recent of2 resultswithin the time period is included. Triglycerides 105 <150 mg/dL [facility] Comment:Desirable Triglyceri de: less than 150 mg/dLBorderline High Triglyceride 150-199 mg/dLHigh Triglyceride: 200-499 mg/dLVery High Triglyceride: greater than or equal to 5OO mg/dL Cholesterol 298(H) <200 mg/dL [facility] Comment:Desirable Cholestero l: less than 200 mg/dLBorderline High Cholesterol: 200-239 mg/dLHigh Cholesterol: greater than 239 mg/dL LDL Cholesterol Calculated 220(H) <100 mg/dL [facility] Comment:Desirable LDL: less than 100 mg/dLNear Optimal/Above Optimal LDL: 110- 129 mg/dLBorderline High LDL: 130-159 mg/dLHigh LDL: 160-189 mg/dLVery High LDL: greater than or equal to 190 mg/dL HDL Cholesterol 57 >40 mg/dL [facility] Comment:Desirable HDL: great er than 40 mg/dL Note: This HDL assay may give artificially low results in patients with liver disease. Blood Venous blood specimen / Unknown 04/29/2024 10:56 AM EST 04/29/2024 2:17 PM EST us Shahana Kidd MD LAB BLOOD ORDERABLES Final Result [facility] [address] [place], [place] [phone] * Cologuard?? colon cancer screening (04/29/2024 8:15 AM EST) Cologuard Result Negative Negative 05/07/19 10:15 AM EST [facility] (CLIA #:[id number]) Comment: NEGATIVE TEST RESULT. A negative Cologuard result indicates a low likelihood that a colorectal cancer (CRC) or advanced adenoma (adenomatous polyps with more advanced pre-malignant features) ??is present. The chance that a person with a negative Cologuard test has a colorectal cancer is less than 1 in 1500 (negative predictive value >99.9%) or has an ??advanced adenoma is less than ??5.3% (negative predictive value 94.7%). These data are based on a prospective cross-sectional study of 10,000 individuals at average risk for colorectal cancer who were screened with both Cologuard and colonoscopy. (Nohemi Jaime al, N Engl J Med 2014;370(14):1286- 1297) The normal value (reference range) for this assay is negative. COLOGUARD RE-SCREENING RECOMMENDATION: Periodic colorectal cancer screening is an important part of preventive healthcare for asymptomatic individuals at average risk for colorectal cancer. ??Following a negative Cologuard result, the [place] [employer] and U.S. Multi-Society Task Force screening guidelines recommend a Cologuard re-screening interval of 3 years. References: [place] [employer] Guideline for Colorectal Cancer Screening: https://www.cancer.org/cancer/yiinq-hloiyl-tfqpwf/mnkfzbwms-lltcailvr-qqfpihz/ac s-rec ommendations.html.; [place], Buzz ROCK, Alex McallisterK, Colorectal Cancer Screening: Recommendations for Physicians and Patients from the U.S. Multi-Society Task Force on Colorectal Cancer Screening , Am J Gastroenterology 2017; 112:8451-0174. TEST DESCRIPTION: Composite algorithmic analysis of stool DNA-biomarkers with hemoglobin immunoassay. ?? Quantitative values of individual biomarkers are not reportable and are not associated with individual biomarker result reference ranges. Cologuard is intended for colorectal cancer screening of adults of either sex, 45 years or older, who are at average-risk for colorectal cancer (CRC). Cologuard has been approved for use by the U.S. FDA. The performance of Cologuard was established in a cross sectional study of average-risk adults aged 50-84. Cologuard performance in patients ages 45 to 49 years was estimated by sub-group analysis of near-age groups. Colonoscopies performed for a positive result may find as the most clinically significant lesion: colorectal cancer [4.0%], advanced adenoma (including sessile serrated polyps greater than or equal to 1cm diameter) [20%] or non- advanced adenoma [31%]; or no colorectal neoplasia [45%]. These estimates are derived from a prospective cross-sectional screening study of 10,000 individuals at average risk for colorectal cancer who were screened with both Cologuard and colonoscopy. (Nohemi Jaime al, N Engl J Med 2014;370(14):8463-9894.) Cologuard may produce a false negative or false positive result (no colorectal cancer or precancerous polyp present at colonoscopy follow up). A negative Cologuard test result does not guarantee the absence of CRC or advanced adenoma (pre-cancer). The current Cologuard screening interval is every 3 years. ([place] [employer] and U.S. Multi-Society Task Force). Cologuard performance data in a 10,000 patient pivotal study using colonoscopy as the reference method can be accessed at the following location: www.[employer].com/results. Additional description of the Cologuard test process, warnings and precautions can be found at www.cologuard.com. Stool specimen (specimen) 04/29/2024 8:15 AM EST 05/01/2024 12:16 PM EST Shahana Kidd MD LAB MOLECULAR DIAGNOSTICS O RDERABLES Final Result Performing Organization Address City/[facility]/ZIP Co de Phone Number [facility] (CLIA #:[id number]) [place] [place] [address], * Hepatitis C Antibody with Reflex to HCV, RNA, Quantitative, Real-Time PCR (02/24/2024 10:41 AM EST) Hepatitis C Antibody Nonreactive Nonreactive [facility] Comment:Antibodies to HCV no t detected; does not exclude early acuteHCV infection. Blood Venous blood specimen / Unknown 02/24/2024 10:41 AM EST 02/24/2024 2:39 PM EST Shahana Kidd MD LAB BLOOD ORDERABLES Final Result Performing Organization Address [facility]/ZIP Co de Phone Number [facility] [address] [place] [phone] * HIV-1/2 Antigen and Antibodies, Fourth Generation, with Reflexes (02/24/2024 10:41 AM EST) HIV AB/AG Nonreactive Nonreactive [facility] Comment:HIV-1 p24 Ag and/or HIV-1/HIV-2 Ab not detected.A test result that is nonreactive does not exclude thepossibility of exposure to or infection with HIV-1 and/orHIV-2. Nonreactive results in this assay for individualswith prior exposure to HIV-1 and/or HIV-2 may be due toantigen and antibody levels that are below the limit ofdetection of this assay.The Archiver's HIV Ag/Ab Combo assay result andsupplemental assay results should be interpreted inconjunction with the patient's clinical presentation,history and other laboratory results. If the results areinconsistent with clinical evidence, additional testing issuggested to confirm the result. Blood Venous blood specimen / Unknown 02/24/2024 10:41 AM EST 02/24/2024 2:39 PM EST us Shahana Kidd MD LAB BLOOD ORDERABLES Final Result [facility] [address] [place] [phone] * (ABNORMAL) Comprehensive Metabolic Panel (02/24/2024 9:42 AM EST) Pathologist [facility] Sodium 141 135 - 145 mmol/L [facility] Potassium 5.0 3.3 - 5.1 mmol/L [facility] Chloride 106 96 - 108 mmol/L [facility] Carbon Dioxide 28 22 - 29 mmol/L [facility] Anion Gap 12 12 - 20 [facility] Urea Nitrogen (BUN) 24(H) 9 - 16 mg/dL [facility] Creatinine, Serum 1.03 0.5 - 1.4 mg/dL [facility] Estimated Glomerular Filt Rate 54 [facility] Comment:NOTE: For -Am erican individuals, multiply the result by 1.210.Chronic Kidney Disease: Estimated GFR < 60 mL/min/1.42d8Hmsplk Kidney Disease: Estimated GFR < 15 mL/min/1.73m2 Glucose 93 60 - 115 mg/dL [facility] Calcium 10.0 8.4 - 10.2 mg/dL [facility] Bilirubin, Total 0.5 0.0 - 1.0 mg/dL [facility] Aspartate Amino Transferase 24 5 - 31 U/L [facility] Alanine Aminotransferase 18 0 - 31 U/L [facility] Total Protein 7.0 6.5 - 8.0 g/dL [facility] Albumin Level 4.0 3.5 - 5.0 g/dL [facility] Alkaline Phosphatase 57 39 - 117 U/L [facility] Blood Venous blood specimen / Unknown 02/24/2024 9:42 AM EST 02/24/2024 2:39 PM EST Shahana Kidd MD LAB BLOOD ORDERABLES Final Result Performing Organization Address City/State/[facility] Co de Phone Number [facility] [address] [place] [phone] * Thinprep PAP and HPV nRNA E6/E7 (05/08/2022 12:00 AM EST) Clinical Information: Postmenopausal [facility] [place] [email or web address] LMP: NONE GIVEN [employer] [place] [employer] Prev. PAP: NONE GIVEN [employer] [place] [email or web address] Prev. BX: NONE GIVEN [facility] SOURCE: None given [employer] [place] [employer] Statement Of Adequacy: [facility] [employer] Comment: Satisfactory for evaluation. Endocervical/transformation zone component present. Partially obscuring inflammation Interpretation/ Result: Negative for intraepithelial lesion or malignancy. [employer] [place] [employer] Cytotechnologis t: [employer] [place] [employer] Comment: KN, CT(ASCP) CT screening location: [address] ??[phone] Review Cytotechnologis t: [employer] [place] [employer] Comment: WAC, CT(ASCP) CT screening location: [address] ??[phone] (Always Message) [employer] Comment: EXPLANATORY NOTE: The Pap is a screening test for cervical cancer. It is not a diagnostic test and is subject to false negative and false positive results. It is most reliable when a satisfactory sample, regularly obtained, is submitted with relevant clinical findings and history, and when the Pap result is evaluated along with historic and current clinical information. HPV nRNA E6/E7 Not Detected Not Detected [employer] Comment: Methodology: Operating Room Coordinator-Mediated Amplification This assay detects E6/E7 viral messenger RNA (mRNA) from 14 high-risk HPV types (16,18,31,33,35,39,45,51,52,56,58,59,66,68). Cervical sources are required for HPV testing. If a vaginal source from a patient who has had a total hysterectomy with removal of cervix was submitted, please contact the testing laboratory for alternative testing options. For additional information, please refer to http://education.Polyplex/faq/BZC016z0 (This link if provided for information/ educational purposes only.) 05/08/2022 05/09/2022 2:2 2 AM EST Narrative [facility] - 05/16/2022 10:38 AM EST FASTING: UNKNOWN Claudia MENJIVAR LAB PATHOLOGY ORDERABLES Final Result [facility] [address], [place] [phone] [employer] [place] [employer] [address] [facility], ([address]) [place] [phone] from Last 3 Months or Most Recently Relevant to Health Maintenance Insurance C3 Care Teams Enamel Burner Relationship Specialty Start Date End Date Shahana Kidd MD [address] [place] [phone] PCP - General Internal Medicine 06/13/20
--- OUTSIDE RECORDS SUMMARY | 2024-05-20 16:06 | XMS_ITS | Encounter Summary ---
Author Organization [employer] Address [address] [place] [address] Care Team Providers Care End Polisher Name Role Phone Shahana Kidd MD Primary Care Provider [phone] Encounter Details Date Type Department Care Team (Latest Contact Info) Description 05/07/2024 Travel Social History Tobacco Use Types Packs/Day [...] documented as of this encounter Care Teams End Polisher Relationship Specialty Start Date End Date Shahana Kidd MD [address] [place] [phone] PCP - General Internal Medicine 06/13/20 documented as of this encounter
--- OUTSIDE RECORDS SUMMARY | 2024-05-20 16:06 | XMS_ITS | Encounter Summary ---
Author Organization [employer] Address [address] [facility] 7t [place] [address] Care Team Providers Care Machine Group Leader Name Role Phone Shahana Kidd MD Primary Care Provider [phone]- [phone] Encounter Details Date Type Department Care Team (Late st Contact Info) Description 05/07/2024 2:00 PM EST Office Visit [facility] MED [facility] PEDS [address] [place] [address] Celsa Velarde MD [address] [place] [address] Acute otitis externa of left ear, unspecified type (Primary Dx); Pharyngitis, unspecified etiology Social History Tobacco Use Types Packs/Day Years [...] Sign Reading Time Taken Comments Blood Pressure 117/67 05/07/2024 2:06 PM EST Pulse 63 05/07/2024 2:06 PM EST Temperature 36.2 ??C (97.1 ??F) 05/07/2024 2:06 PM ES T Respiratory Rate 16 05/07/2024 2:06 PM EST Oxygen Saturation 98% 05/07/2024 2:06 PM EST Inhaled Oxygen Concentration - - Weight 69.9 kg (154 lb) 05/07/2024 2:06 PM EST Height 160 cm (5' 3 ) 05/07/2024 2:06 PM EST Body Mass Index 27.28 05/07/2024 2:06 PM EST documented in this encounter Progress Notes * Celsa Velarde MD - 05/07/2024 2:00 PM EST Subjective Patient ID: Kandy Hernandez is a 63 y.o. female who presents for sore throat. HPI Kandy is here with 5 days of sore throat. Pain is on the right side of her throat and it hurts to swallow. Two days ago the pain progressed to her left angle of her jaw. Thought maybe she had a tooth infection. Has no pain when she chews. Denies ear pain or hearing loss. Review of Systems Constitutional: Negative for chills and fever. HENT: Positive for rhinorrhea (chronic) and sore throat. Negative for hearing loss, sinus pressure and sinus pain. Respiratory: Negative for cough. Objective BP 117/67 (BP Location: Left arm, Patient Position: Sitting, BP Cuff Size: Adult) Pulse 63 Temp97.1 ??F (36.2 ??C) (Oral) Resp 16 Ht 5' 3 (1.6 m) Wt 154 lb (69.9 kg) SpO2 98% BMI 27.28 kg/m?? Physical Exam Constitutional: Appearance: She is not toxic-appearing. HENT: Head: Normocephalic and atraumatic. Salivary Glands: Right salivary gland is not tender. Left salivary gland is not tender. Right Ear: Hearing, ear canal and external ear normal. Tympanic membrane is scarred. Left Ear: Ear canal and external ear normal. Tympanic membrane is injected and scarred. Mouth/Throat: Mouth: Mucous membranes are moist. Dentition: No dental caries or gum lesions. Pharynx: Oropharynx is clear. No posterior oropharyngeal erythema. Tonsils: No tonsillar exudate or tonsillar abscesses. 2+ on the right. 1+ on the left. Eyes: General: Left eye: No discharge. Extraocular Movements: Extraocular movements intact. Neck: Comments: Tender left sided submandibular lymph node Pulmonary: Effort: Pulmonary effort is normal. Neurological: General: No focal deficit present. Mental Status: She is alert. Psychiatric: Mood and Affect: Mood normal. Behavior: Behavior normal. Assessment/Plan Diagnoses and all orders for this visit: Acute otitis externa of left ear, unspecified type: - amoxicillin-clavulanate (Augmentin) 875-125 MG tablet; Take 1 tablet by mouth 2 times daily for 5days. Pharyngitis, unspecified etiology: POCT for strep is negative today but will check throat culture. - POCT Rapid COVID Ag - POCT rapid strep A manually resulted documented in this encounter Miscellaneous Notes * Addendum Note - Leroy Tracy MA - 05/07/2024 2:00 PM ESTAddended by: LEROY TRACY on: 05/07/2024 03:36 PM Modules accepted: Orders documented in this encounter Plan of Treatment Not on file documented as of this encounter Procedures Procedure Name Priority Date/Time Associated Diagnosis Comments CULTURE, THROAT Routine 05/07/2024 3:36 PM EST Pharyngitis, unspecified etiology POC HERNÁNDEZ ID NOW STREP A Routine 05/07/2024 3:05 PM EST Pharyngitis, unspecified etiology POCT RAPID COVID ANTIGEN Routine 05/07/2024 3:05 PM EST Pharyngitis, unspecified etiology documented in this encounter Results * Culture, Throat (05/07/2024 3:36 PM EST) Throat Structure of anterior portion of neck / Unknown 05/07/2024 3:36 PM EST 05/07/2024 5:50 PM EST Comment:Throat Narrative [facility] - 05/09/2024 8:40 AM EST Throat Culture No Group A Beta-hemolytic Streptococci isolated. Specimen Source: Throat us Celsa Velarde MD LAB MICROBIOLOGY - GENERAL OR DERABLES Final Result [facility] [address] [place] [address] [phone] * POCT rapid strep A manually resulted (05/07/2024 3:05 PM EST) [facility] Rapid Strep A Screen Negative Negative, None Detected QC Media Lot # Comment:[id number] Lot# Expiration Date Comment: Swab 05/07/2024 3:05 PM EST Celsa Velarde MD POINT OF CARE TEST ENTER/EDIT ORDERABLES Final Result * POCT Rapid COVID Ag (05/07/2024 3:05 PM EST) Rapid COVID Ag Negative QC Media Lot # Comment:[id number] Lot# Expiration Date Comment:07/07/2025 Swab 05/07/2024 3:05 PM EST Celsa Velarde MD POINT OF CARE TEST ENTER/EDIT ORDERABLES Final Result documented in this encounter Visit Diagnoses Diagnosis Acute otitis externa of left ear, unspecified type- Primary Pharyngitis, unspecified etiology documented in this encounter Additional Health Concerns Assessment Noted Time PHQ-9 Depression Total Score: 2 02/19/20 24 10:03 AM EDT documented as of this encounter Care Teams Machine Group Leader Relationship Specialty Start Date End Date Shahana Kidd MD [address] [place] [phone] PCP - General Internal Medicine 06/13/20 documented as of this encounter
[2024-05-20 16:42] LABS: Free T4 (Free Thyroxine) 1.84 ng/dL (0.71-1.85)
== END 2024-05-20 13:51 | disposition home or self-care (01) ==
LOC: HO.CHCLDS 13:50
PROVIDERS: Visit Provider Internal Medicine
DX: M54.2 Cervicalgia (principal)
CPT/HCPCS: 36415; 84439; 84443; 85025; 85652; 86140

== ENCOUNTER 2024-05-21 11:21 | Outpatient (REF) | payer MEDICAID, SELFPAY ==
--- OUTSIDE RECORDS SUMMARY | 2024-05-21 15:15 | XMS_ITS | Encounter Summary ---
Author Organization [employer] Address [address] [facility] 7 [place] [address] Care Team Providers Care Administrative Assistant Receptionist Name Role Phone Shahana Kidd MD Primary Care Provider [phone]- [phone] Encounter Details Date Type Department Care Team ([facility] st Contact Info) Description 10/03/2023 Orders Only [facility]EDS [address] [place], [place] [phone] Shahana Kidd MD [address] [place] [address] Allergy, subsequent encounter Social History Tobacco Use [...] documented as of this encounter Care Teams Administrative Assistant Receptionist Relationship Specialty Start Date End Date Shahana Kidd MD [address] [place] [address] PCP - General Internal Medicine 06/13/20 documented as of this encounter
--- OUTSIDE RECORDS SUMMARY | 2024-05-21 15:15 | XMS_ITS | Encounter Summary ---
Author Organization [employer] Address [address] [facility] 7 [place] [address] Care Team Providers Care Dyeing Machine Feeder Name Role Phone Shahana Kidd MD Primary Care Provider [phone]- [phone] Encounter Details Date Type Department Care Team (Latest Contact Info) Description 02/25/2024 Orders Only [facility] MED & PEDS [address] [place], [place] [phone] Shahana Kidd MD [address] [place] [address] Hypercholesterolemia (Primary Dx) Social History Tobacco Use [...] 10:56 AM EST) Triglycerides 105 <150 mg/dL [facility] Comment:Desirable Triglyceri de: less than 150 mg/dLBorderline High Triglyceride 150-199 mg/dLHigh Triglyceride: 200-499 mg/dLVery High Triglyceride: greater than or equal to 5OO mg/dL Cholesterol 298(H) <200 mg/dL [facility] Comment:Desirable Cholestero l: less than 200 mg/dLBorderline High Cholesterol: 200-239 mg/dLHigh Cholesterol: greater than 239 mg/dL LDL Cholesterol Calculated 220(H) <100 mg/dL [facility] Comment:Desirable LDL: less than 100 mg/dLNear Optimal/Above Optimal LDL: 110- 129 mg/dLBorderline High LDL: 130-159 mg/dLHigh LDL: 160-189 mg/dLVery High LDL: greater than or equal to 190 mg/dL HDL Cholesterol 57 >40 mg/dL [facility] Comment:Desirable HDL: great er than 40 mg/dL Note: This HDL assay may give artificially low results in patients with liver disease. Blood Venous blood specimen / Unknown 04/29/2024 10:56 AM EST 04/29/2024 2:17 PM EST us Shahana Kidd MD LAB BLOOD ORDERABLES Final Result [facility] [address] [place] [address] [phone] documented in this encounter Visit Diagnoses Diagnosis Hypercholesterolemia- Primary Pure hypercholesterolemia documented in this encounter Additional Health Concerns Assessment Noted Time PHQ-9 Depression Total Score: 2 02/19/20 24 10:03 AM EDT documented as of this encounter Care Teams Dyeing Machine Feeder Relationship Specialty Start Date End Date Shahana Kidd MD [address] [place] [id number] PCP - General Internal Medicine 06/13/20 documented as of this encounter
--- OUTSIDE RECORDS SUMMARY | 2024-05-21 15:15 | XMS_ITS | Encounter Summary ---
Author Organization [employer] Address [address] [place] [address] [place] [address] Care Team Providers Care Buffer Copper Name Role Phone Shahana Kidd MD Primary Care Provider [phone] Reason for Visit * Reason Comments Med Refill Encounter Details Date Type Department Care Team ([facility] st Contact Info) Description 06/28/2023 Refill [facility] [address] [place] [address] Shahana Kidd MD [address] [place] [address] Allergy, subsequent encounter Social History Tobacco Use [...] documented as of this encounter Care Teams Buffer Copper Relationship Specialty Start Date End Date Sahhana Kidd MD [address] [place] [id number] PCP - General Internal Medicine 06/13/20 documented as of this encounter
--- OUTSIDE RECORDS SUMMARY | 2024-05-21 15:16 | XMS_ITS | Encounter Summary ---
Author Organization [employer] Address [address] [facility] 7t [place] [address] Care Team Providers Care Office Equipment Mechanic Name Role Phone Shahana Kidd MD Primary Care Provider [phone] Encounter Details Date Type Department Care Team (Late st Contact Info) Description 05/07/2024 2:00 PM EST Office Visit [facility] MED & PEDS [address] [place] [address] Celsa Velarde MD [address] [place] [address] Acute otitis externa of left ear, unspecified [...] EST 05/07/2024 5:50 PM EST Comment:Throat Narrative [facility] - 05/09/2024 8:40 AM EST Throat Culture No Group A Beta-hemolytic Streptococci isolated. Specimen Source: Throat us Celsa Velarde MD LAB MICROBIOLOGY - GENERAL OR DERABLES Final Result [facility] [address] [place] [address] [phone] * POCT rapid strep A manually resulted (05/07/2024 3:05 PM EST) [facility] Rapid Strep A Screen Negative Negative, None Detected QC Media Lot # Comment:[id number] Lot# Expiration Date Comment: Swab 05/07/2024 3:05 PM EST Celsa Velarde MD POINT OF CARE TEST ENTER/EDIT ORDERABLES Final Result * POCT Rapid COVID Ag (05/07/2024 3:05 PM EST) Rapid COVID Ag Negative QC Media Lot # Comment:[id number] Lot# Expiration Date Comment:07/07/2025 Swab 05/07/2024 3:05 [...] documented as of this encounter Care Teams Office Equipment Mechanic Relationship Specialty Start Date End Date Shahana Kidd MD [address] [place] [id number] PCP - General Internal Medicine 06/13/20 documented as of this encounter
--- OUTSIDE RECORDS SUMMARY | 2024-05-21 15:16 | XMS_ITS | Encounter Summary ---
Author Organization [employer] Address [address] [facility] [address] 7[address] [place] [address] Care Team Providers Care Clerk Of Scales Name Role Phone Shahana Kidd MD Primary Care Provider [phone] Encounter Details Date Type Department Care Team [...] documented as of this encounter Care Teams Clerk Of Scales Relationship Specialty Start Date End Date Shahana Kidd MD [address] [place] [phone] PCP - General Internal Medicine 06/13/20 documented as of this encounter
--- OUTSIDE RECORDS SUMMARY | 2024-05-21 15:16 | XMS_ITS | Clinical Summary ---
Author Organization [employer] [facility] it Address [address] [place] [address] Care Team Providers Care Warehouse Shift Supervisor Name Role Phone Unavailable Primary Care Provider [...]
--- OUTSIDE RECORDS SUMMARY | 2024-05-21 15:16 | XMS_ITS | Encounter Summary ---
Author Organization [employer] Address [address] [facility] 7 [place] [address] Care Team Providers Care Torch Heater Name Role Phone Shahana Kidd MD Primary Care Provider [phone] Reason for Referral * Imaging (Routine) - Authorized Specialty Diagnoses / Procedures Referred By Contac t Referred To Contact Radiology Diagnoses Low TSH level Procedures NM Thyroid Uptake Shahana Kidd MD [address] [place] [address] Phone: tel: fax: [address] Phone: tel: fax: Referral ID Status Reason Start Date Expiration Date V isits Requested Visits Authorized [id number] Authorized 05/21/2024 05/21/2025 3 1 * Consultation (Urgent) - Authorized Specialty Diagnoses / Procedures Referred By Contac t Referred To Contact Endocrinology Diagnoses Low TSH level Shahana Kidd MD [address] [place] [address] Phone: tel: fax: [facility] [address] [facility] 3rd [address] [place], [place] Phone: tel: fax: Referral ID Status Reason Start Date Expiration Date Visits Requested Visits Authorized [id number] Authorized Specialty Services Required 05/20/2024 05/20/2025 1 1 Encounter Details Date Type Department Care Team (Late st Contact Info) Description 05/20/2024 Orders Only [facility]S [address] [place] [address] Shahana Kidd MD [address] [place] [address] Low TSH level (Primary Dx) Social History Tobacco Use Types [...] Type Priority Associated Diagnoses Orde r Schedule T3, Total Lab Routine Low TSH level Expected: 05/21/2024 (Approximate), Expires: 05/21/2025 TSI (Thyroid Stimulating Immunoglobulin) Lab Routine Low TSH level Expected: 05/21/2024 (Approximate), Expires: 05/21/2025 NM Thyroid Uptake Imaging Routine Low TSH level Expected: 05/21/2024, Expires: 05/21/2025 Scheduled Referrals Name Type Priority Associated Diagnoses Order Schedule Referral to Endocrinology Outpatient Referral Urgent Low TSH level Expected: 05/20/2024 (Approximate), Expires: 05/20/2025 documented as of this encounter Visit Diagnoses Diagnosis Low TSH level- Primary documented in this encounter Additional Health Concerns Assessment Noted Time PHQ-9 Depression Total Score: 2 02/19/20 24 10:03 AM EDT documented as of this encounter Care Teams Torch Heater Relationship Specialty Start Date End Date Shahana Kidd MD [address] [place] [phone] PCP - General Internal Medicine 06/13/20 documented as of this encounter
--- OUTSIDE RECORDS SUMMARY | 2024-05-21 15:16 | XMS_ITS | Clinical Summary ---
Author Organization [employer] Address [address] [facility] [address] [place] [address] Care Team Providers Care School Aide Name Role Phone Shahana Kidd MD Primary Care Provider [phone] Allergies No known active allergies Medications cetirizine [...] Encounters Date Type Department Care Team Description 05/21/2024 Telephone [facility] [address] [place] [phone] Shahana Kidd MD Lab Orders 05/20/2024 1:20 PM EST Office Visit [facility] [address] [place] [address] Shahana Kidd MD Tenderness of neck (Primary Dx) 05/20/2024 Orders Only [facility] [address] [place] [address] Shahana Kidd MD Low TSH level (Primary Dx) 05/20/2024 Orders Only [facility] [address] [place] [address] Shahana Kidd MD 05/20/2024 Travel 05/13/2024 Telephone [facility] [address] [place] [address] Grisel Anton, RN Results 05/07/2024 2:00 PM EST Office Visit [facility] [address] [place] [address] Celsa Velarde MD Acute otitis externa of left ear, unspecified type (Primary Dx); Pharyngitis, unspecified etiology 05/07/2024 Travel 05/01/2024 Telephone [facility] [address] [place] [phone] Shahana Kidd MD Lab Results 05/01/2024 Orders Only [facility] [address] [place] [address] Shahana Kidd MD Hypercholesterolemia (Primary Dx) 02/25/2024 Telephone [facility] [address] [place] [address] Shahana Kidd MD Lab Results 02/25/2024 Orders Only [facility] [address] [place] [address] Shahana Kidd MD Hypercholesterolemia (Primary Dx) 02/19/2024 10:00 AM EDT Office Visit [facility] [address] [place] [address] Shahana Kidd MD Annual physical exam (Primary [...] (1 of 2) 2010 COVID-19 Vaccine ( - season) 2023 05/28/2022, 04/27/2021, 08/10/2020, Additional history [...] Procedure Name Priority Date/Time Associated Diagnosis Comments T4, FREE Routine 05/20/2024 1:51 PM EST TSH W/REFLEX TO FT4 Routine 05/20/2024 1 [...] Free T4 <0.01(L) 0.32 - 4.0 uIU/mL [facility] Blood Venous blood specimen / Unknown 05/20/2024 1:51 PM EST 05/20/2024 2:37 PM EST us Shahana Kidd MD LAB BLOOD ORDERABLES Final Result [facility] [address] [place] [phone] * CBC auto differential (05/20/2024 1:51 PM EST) Only the most recent of2 resultswithin the time period is included. White Blood Count 8.0 4.8 - 10.8 X10*3/uL [facility] Red Blood Count 4.40 4.20 - 5.50 X10*6/uL [facility] Hemoglobin 12.7 12.0 - 16.0 g/dl [facility] Hematocrit 39.2 37.0 - 47.0 % [facility] Mean Corpuscular Volume 89.1 80.0 - 98.0 fL [facility] Mean Corpuscular Hemoglobin 28.9 27.0 - 33.0 pg [facility] Mean Corpuscular HGB Conc 32.4 31.0 - 35.0 g/dl [facility] Red Cell Distribution Width 11.6 11.0 - 16.0 % [facility] Platelet Count 255 160 - 400 X10*3/uL [facility] Mean Platelet Volume 9.9 9.4 - 12.3 fL [facility] Neutrophils Percent Auto 69.6 45 - 73 % [facility] Imm Gran Pct Auto 0.2 0.0 - 0.4 % [facility] Lymphocytes Percent Auto 20.8 20 - 40 % [facility] Monocytes Percent Auto 7.2 2 - 11 % [facility] Eosinophils Percent Auto 1.6 0 - 4 % [facility] Basophils Percent Auto 0.6 0 - 2 % [facility] NRBC Pct Auto 0.0 0.0 - 0.2 /100WBC [facility] Neutrophils Absolute Auto 5.6 2.0 - 8.3 x10*3/uL [facility] Imm Gran Abs Auto 0.02 0.00 - 0.03 X10*3/uL [facility] Lymphocytes Absolute Auto 1.7 1.2 - 4.9 X10*3/uL [facility] Monocytes Absolute Auto 0.6 0.1 - 1.2 X10*3/uL [facility] Eosinophils Absolute Auto 0.1 0.0 - 0.4 X10*3/uL [facility] Basophils Absolute Auto 0.1 0.0 - 0.2 X10*3/uL [facility] NRBC Abs Auto 0.000 0.0 - 0.012 X10*3/uL [facility] Blood Venous blood specimen / Unknown 05/20/2024 1:51 PM EST 05/20/2024 2:37 PM EST us Shahana Kidd MD LAB BLOOD ORDERABLES Final Result [facility] [address] [place] [phone] * (ABNORMAL) Sed Rate by Modified Harsharen (05/20/2024 1:51 PM EST) Erythrocyte Sedimentation Rate 67(H) 0 - 20 MM/HR [facility] Comment:Patients with polycy themia and many hemoglobin abnormalitiesmay have depressed sed rates whereas patients with anemiamay have elevated sed rates. Blood Venous blood specimen / Unknown 05/20/2024 1:51 PM EST 05/20/2024 2:37 PM EST us Shahana Kidd MD LAB BLOOD ORDERABLES Final Result Performing Organization Address [facility] Co de Phone Number [facility] [address] [place] [phone] * (ABNORMAL) C-reactive Protein (05/20/2024 1:51 PM EST) C Reactive Protein 4.00(H) < or = 0.50 mg/dL [facility] Blood Venous blood specimen / Unknown 05/20/2024 1:51 PM EST 05/20/2024 2:37 PM EST us Shahana Kidd MD LAB BLOOD ORDERABLES Final Result Performing Organization Address [facility] Co de Phone Number [facility] [address] [place] [phone] * T4, Free (05/20/2024 1:51 PM EST) Free T4 (Free Thyroxine) 1.84 0.71 - 1.85 ng/dL [facility] 05/20/2024 1:51 PM EST 05/20/2024 2:37 PM EST us Shahana Kidd MD LAB BLOOD ORDERABLES Final Result Performing Organization Address [facility] Co de Phone Number [facility] [address] [place] [phone] * Culture, Throat (05/07/2024 3:36 PM EST) Throat Structure of anterior portion of neck / Unknown 05/07/2024 3:36 PM EST 05/07/2024 5:50 PM EST Comment:Throat Narrative [facility] - 05/09/2024 8:40 AM EST Throat Culture No Group A Beta-hemolytic Streptococci isolated. Specimen Source: Throat us Celsa Velarde MD LAB MICROBIOLOGY - GENERAL OR DERABLES Final Result [facility] [address] [place] [phone] * POCT rapid strep A manually resulted (05/07/2024 3:05 PM EST) [facility] Rapid Strep A Screen Negative Negative, None Detected QC Media Lot # Comment:[id number] Lot# Expiration Date Comment: Swab 05/07/2024 3:05 PM EST Celsa Velarde MD POINT OF CARE TEST ENTER/EDIT ORDERABLES Final Result * POCT Rapid COVID Ag (05/07/2024 3:05 PM EST) [facility] Rapid COVID Ag Negative QC Media Lot # Comment:[id number] Lot# Expiration Date Comment:07/07/2025 Swab 05/07/2024 3:05 PM EST Celsa Velarde MD POINT OF CARE TEST ENTER/EDIT ORDERABLES Final Result * (ABNORMAL) Lipid Panel, Standard (04/29/2024 10:56 AM EST) Only the most recent of2 resultswithin the time period is included. [facility] Triglycerides 105 <150 mg/dL [facility] Comment:Desirable Triglyceri de: less than 150 mg/dLBorderline High Triglyceride 150-199 mg/dLHigh Triglyceride: 200-499 mg/dLVery High Triglyceride: greater than or equal to 5OO mg/dL Cholesterol 298(H) <200 mg/dL [facility] Comment:Desirable Cholestero l: less than 200 mg/dLBorderline High Cholesterol: 200-239 mg/dLHigh Cholesterol: greater than 239 mg/dL LDL Cholesterol Calculated 220(H) <100 mg/dL [facility] Comment:Desirable LDL: less than 100 mg/dLNear Optimal/Above Optimal LDL: 110- 129 mg/dLBorderline High LDL: 130-159 mg/dLHigh LDL: 160-189 mg/dLVery High LDL: greater than or equal to 190 mg/dL HDL Cholesterol 57 >40 mg/dL [facility] Comment:Desirable HDL: great er than 40 mg/dL Note: This HDL assay may give artificially low results in patients with liver disease. Blood Venous blood specimen / Unknown 04/29/2024 10:56 AM EST 04/29/2024 2:17 PM EST Shahana Kidd MD LAB BLOOD ORDERABLES Final Result [facility] [address] [place] [phone] [phone] * Cologuard?? colon cancer screening (04/29/2024 8:15 AM EST) Cologuard Result Negative Negative 05/07/19 10:15 AM EST [facility] (CLIA #:[id number]) Comment: NEGATIVE TEST RESULT. A negative Cologuard [...] cancer. ??Following a negative Cologuard result, the [place] [employer] and U.S. Multi-Society Task Force screening guidelines recommend a Cologuard re-screening interval of 3 years. References: [place] [employer] Guideline for Colorectal Cancer Screening: https://www.cancer.org/cancer/owbqp-muaebc-buvlzh/tesxjtwlr-cdbyhjxbc-hxjofsf/ac s-rec ommendations.html.; Mt DK, Buzz CR, Alex McallisterK, Colorectal Cancer Screening: Recommendations for Physicians and Patients from the U.S. Multi-Society Task Force on Colorectal Cancer Screening , Am J Gastroenterology 2017; 112:5740-0489. TEST DESCRIPTION: Composite algorithmic analysis of stool [...] (Nohemi Jaime al, N Engl J Med 2014;370(14):1607-1048.) Cologuard may produce a false negative or false positive result (no colorectal cancer or precancerous polyp present at colonoscopy follow up). A negative Cologuard test result does not guarantee the absence of CRC or advanced adenoma (pre-cancer). The current Cologuard screening interval is every 3 years. ([place] [employer] and U.S. Multi-Society Task Force). Cologuard performance data in a 10,000 patient pivotal study using colonoscopy as the reference method can be accessed at the following location: www.TapTrak.com/results. Additional description of the Cologuard test process, warnings and precautions can be found at www.[employer].com. Stool specimen (specimen) 04/29/2024 8:15 AM EST 05/01/2024 12:16 PM EST us Shahana Kidd MD LAB MOLECULAR DIAGNOSTICS O RDERABLES Final Result [facility] (CLIA #:[id number]) [place] [place] [address], * Hepatitis C Antibody with Reflex to HCV, RNA, Quantitative, Real-Time PCR (02/24/2024 10:41 AM EST) Hepatitis C Antibody Nonreactive Nonreactive [facility] Comment:Antibodies to HCV no t detected; does not exclude early acuteHCV infection. Blood Venous blood specimen / Unknown 02/24/2024 10:41 AM EST 02/24/2024 2:39 PM EST us Shahana Kidd MD LAB BLOOD ORDERABLES Final Result Performing Organization Address City/[facility] Co de Phone Number [facility] [address] [place] [phone] * HIV-1/2 Antigen and Antibodies, Fourth Generation, with Reflexes (02/24/2024 10:41 AM EST) HIV AB/AG Nonreactive Nonreactive [facility] Comment:HIV-1 p24 Ag and/or HIV-1/HIV-2 Ab not detected.A test result that is nonreactive does not exclude thepossibility of exposure to or infection with HIV-1 and/orHIV-2. Nonreactive results in this assay for individualswith prior exposure to HIV-1 and/or HIV-2 may be due toantigen and antibody levels that are below the limit ofdetection of this assay.The [employer] HIV Ag/Ab Combo assay result andsupplemental assay results should be interpreted inconjunction with the patient's clinical presentation,history and other laboratory results. If the results areinconsistent with clinical evidence, additional testing issuggested to confirm the result. Blood Venous blood specimen / Unknown 02/24/2024 10:41 AM EST 02/24/2024 2:39 PM EST us Shahana Kidd MD LAB BLOOD ORDERABLES Final Result [facility] [address] [place] [phone] * (ABNORMAL) Comprehensive Metabolic Panel (02/24/2024 9:42 AM EST) Sodium 141 135 - 145 mmol/L [facility] Potassium 5.0 3.3 - 5.1 mmol/L [facility] Chloride 106 96 - 108 mmol/L [facility] Carbon Dioxide 28 22 - 29 mmol/L [facility] Anion Gap 12 12 - 20 [facility] Urea Nitrogen (BUN) 24(H) 9 - 16 mg/dL [facility] Creatinine, Serum 1.03 0.5 - 1.4 mg/dL [facility] Estimated Glomerular Filt Rate 54 [facility] Comment:NOTE: For -Am erican individuals, multiply the result by 1.210.Chronic Kidney Disease: Estimated GFR < 60 mL/min/1.80b5Elszjc Kidney Disease: Estimated GFR < 15 mL/min/1.73m2 Glucose 93 60 - 115 mg/dL [facility] Calcium 10.0 8.4 - 10.2 mg/dL [facility] Bilirubin, Total 0.5 0.0 - 1.0 mg/dL [facility] Aspartate Amino Transferase 24 5 - 31 U/L [facility] Alanine Aminotransferase 18 0 - 31 U/L [facility] Total Protein 7.0 6.5 - 8.0 g/dL [facility] Albumin Level 4.0 3.5 - 5.0 g/dL [facility] Alkaline Phosphatase 57 39 - 117 U/L [facility] Blood Venous blood specimen / Unknown 02/24/2024 9:42 AM EST 02/24/2024 2:39 PM EST Shahana Kidd MD LAB BLOOD ORDERABLES Final Result [facility] [address] [place] [phone] * Thinprep PAP and HPV nRNA E6/E7 (05/08/2022 12:00 AM EST) Clinical Information: Postmenopausal [facility] LMP: NONE GIVEN [facility] Prev. PAP: NONE GIVEN [facility] Prev. BX: NONE GIVEN [facility] SOURCE: None given [facility] Statement Of Adequacy: [employer] Comment: Satisfactory for evaluation. Endocervical/transformation zone component present. Partially obscuring inflammation Interpretation/ Result: Negative for intraepithelial lesion or malignancy. [employer] [place] [employer]olog[employer]: [employer] Comment: KN, CT(ASCP) CT screening location: [address] ??[phone] Review Cytotechnolog[employer] t: [employer] [place] [employer] Comment: WAC, CT(ASCP) CT screening location: [address] ??[phone] (Always Message) [employer] Comment: EXPLANATORY NOTE: The Pap is a [...] HPV nRNA E6/E7 Not Detected Not Detected [employer] Comment: Methodology: Opener Tender-Mediated Amplification This assay detects E6/E7 viral messenger RNA (mRNA) from 14 high-risk HPV types (16,18,31,33,35,39,45,51,52,56,58,59,66,68). Cervical sources are required for HPV testing. If a vaginal source from a patient who has had a total hysterectomy with removal of cervix was submitted, please contact the testing laboratory for alternative testing options. For additional information, please refer to http://education.Stream Tags.buuteeq/faq/JBL596g3 (This link if provided for information/ educational purposes only.) 05/08/2022 05/09/2022 2:2 2 AM EST Narrative [facility] - 05/16/2022 10:38 AM EST FASTING: UNKNOWN Claudia Ayala CNM LAB PATHOLOGY ORDERABLES Final Result [facility] [address], [facility], [place] [phone] [facility] [address], ([address]) [place] [phone] from Last 3 Months or Most Recently Relevant to Health Maintenance Insurance [employer] Care Teams School Aide Relationship Specialty Start Date End Date Shahana Kidd MD [address] [place] [address] [place] [address] PCP - General Internal Medicine 06/13/20
--- OUTSIDE RECORDS SUMMARY | 2024-05-21 15:16 | XMS_ITS | Encounter Summary ---
Author Organization [employer] Address [address] [facility] [address] [place] [address] Care Team Providers Care Digital Asset Manager Name Role Phone Shahana Kidd MD Primary Care Provider [phone]- [phone] Encounter Details Date Type Department Care Team ([facility] st Contact Info) Description 05/20/2024 Orders Only [facility] [address], [place] [phone] Shahana Kidd MD [address] [place] [address] Social History Tobacco Use Types Packs/Day Years [...] T4, FREE Routine 05/20/2024 1:51 PM EST documented in this encounter Results * T4, Free (05/20/2024 1:51 PM EST) Free T4 (Free Thyroxine) 1.84 0.71 - 1.85 ng/dL [facility] 05/20/2024 1:51 PM EST 05/20/2024 2:37 PM EST us Shahana Kidd MD LAB BLOOD ORDERABLES Final Result [facility] [address] [place] [phone] documented in this encounter Visit Diagnoses Not on filedocumented in this encounter Additional Health Concerns Assessment Noted Time PHQ-9 Depression Total Score: 2 02/19/20 24 10:03 AM EDT documented as of this encounter Care Teams Digital Asset Manager Relationship Specialty Start Date End Date Shahana Kidd MD [address] [place] [phone] PCP - General Internal Medicine 06/13/20 documented as of this encounter
--- OUTSIDE RECORDS SUMMARY | 2024-05-21 15:16 | XMS_ITS | Encounter Summary ---
Author Organization [employer] Address [address] [place] [address] [place] [address] Care Team Providers Care Virtual Assistant Name Role Phone Shahana Kidd MD Primary Care Provider +1- [phone] Reason for Referral * Imaging (Routine) - Authorized Specialty Diagnoses / Procedures Referred By Contac t Referred To Contact Radiology Diagnoses Tenderness of neck Procedures US Head Neck Soft Tissue Shahana Kidd MD [address] [place] [address] Phone: tel: fax: [facility] [address] [place] [address] Phone: tel: fax: Referral ID Status Reason Start Date Expiration Date V isits Requested Visits Authorized [id number] Authorized 05/20/2024 05/20/2025 1 1 Reason for Visit * Reason Comments Neck Pain Encounter Details Date Type Department Care Team ([facility] st Contact Info) Description 05/20/2024 1:20 PM EST Office Visit [facility] [address] [place], [place] [phone] Shahana Kidd MD [address] [place] [address] Tenderness of neck (Primary Dx) Social History [...] 1:10 PM EST documented in this encounter Progress Notes * Shahana Kidd MD - 05/20/2024 1:20 PM EST Subjective Patient ID: Kandy Hernandez is a 63 y.o. female who presents for No chief complaint on file.. Neck Pain Patient was evaluated on May 07, 2024 with neck pain, sore throat, and left ear ache. Treated with a course of amoxicillin without significant improvement. Patient is still having the discomfort of the left side of the throat radiating to the left side ofthe jaw. No associated fever or other constitutional symptoms. Patient Active Problem List Diagnosis Allergy Hypercholesterolemia Current Outpatient Medications on File Prior to Visit Medication Sig Dispense Refill atorvastatin (Lipitor) 80 MG tablet Take 1 tablet (80 mg) by mouth Once per day. 30 tablet 11 cetirizine (ZyrTEC) 10 MG tablet Take 1 tablet (10 mg) by mouth Once per day. 30 tablet 11 fluticasone (Flonase) 50 MCG/ACT nasal spray Administer 1 spray into each nostril 2 times daily. Shake gently. Before first use, prime pump. After use, clean tip and replace cap. 16 g 11 No current facility-administered medications on file prior to visit. Review of Systems Constitutional: Negative for activity change, appetite change, diaphoresis and fatigue. HENT: Negative for dental problem, drooling and ear discharge. Respiratory: Negative for cough, choking and shortness of breath. Cardiovascular: Negative for leg swelling. Gastrointestinal: Negative for rectal pain. Musculoskeletal: Positive for neck pain. Objective BP 118/72 (BP Location: Left arm, Patient Position: Sitting, BP Cuff Size: Adult) Pulse 71 Temp98 ??F (36.7 ??C) (Oral) Resp 20 Ht 5' 3 (1.6 m) Wt 153 lb (69.4 kg) SpO2 98% BMI 27.10 kg/m?? Physical Exam Constitutional: General: She is not in acute distress. Appearance: Normal appearance. She is not ill-appearing, toxic-appearing or diaphoretic. Cardiovascular: Rate and Rhythm: Normal rate. Pulmonary: Effort: Pulmonary effort is normal. Skin: Comments: Mild erythema of the skin with tenderness of the left thyroid nodule to palpation. Neurological: Mental Status: She is alert. Assessment/Plan Diagnoses and all orders for this visit: Tenderness of neck - CBC auto differential; Future - Sed Rate by Modified Westergren; Future - C-reactive Protein; Future - TSH W/Reflex to FT4; Future - naproxen (Naprosyn) 500 MG tablet; Take 1 tablet (500 mg) by mouth 2 times daily. - US Head Neck Soft Tissue; Future Will be contacted with the results of the workup Possible thyroiditis. Further management will depend on the results of the workup. * Stephanie Sanches RN - 05/20/2024 1:20 PM EST TC to patient to review lab results and recommendation. Patient is aware and willing to go to endocrinology for evaluation. Al questions and concerns have been addressed. documented in this encounter Miscellaneous Notes * Result Encounter Note - Shahana Kidd MD - 05/20/2024 1:20 PM EST Please call. Labs reviewed. Elevated markers of inflammation. Very low TSH which is compatible withhyperthyroidism/thyrotoxicosis. Patient needs an urgent evaluation by endocrinology. The referral will be generated. documented in this encounter Plan of Treatment [...] Free T4 <0.01(L) 0.32 - 4.0 uIU/mL [facility] Blood Venous blood specimen / Unknown 05/20/2024 1:51 PM EST 05/20/2024 2:37 PM EST us Shahana Kidd MD LAB BLOOD ORDERABLES Final Result Performing Organization Address City/[facility]/ZIP Co de Phone Number [facility] [address] [place] [address] [phone] * (ABNORMAL) C-reactive Protein (05/20/2024 1:51 PM EST) C Reactive Protein 4.00(H) < or = 0.50 mg/dL [facility] Blood Venous blood specimen / Unknown 05/20/2024 1:51 PM EST 05/20/2024 2:37 PM EST us Shahana Kidd MD LAB BLOOD ORDERABLES Final Result Performing Organization Address City/[facility]/ZIP Co de Phone Number [facility] [address] [place] [phone] * (ABNORMAL) Sed Rate by Modified Westergren (05/20/2024 1:51 PM EST) Erythrocyte Sedimentation Rate 67(H) 0 - 20 MM/HR [facility] Comment:Patients with polycy themia and many hemoglobin abnormalitiesmay have depressed sed rates whereas patients with anemiamay have elevated sed rates. Blood Venous blood specimen / Unknown 05/20/2024 1:51 PM EST 05/20/2024 2:37 PM EST us Shahana Kidd MD LAB BLOOD ORDERABLES Final Result [facility] [address] [place], [place] [phone] * CBC auto differential (05/20/2024 1:51 PM EST) Pathologist [facility] White Blood Count 8.0 4.8 - 10.8 X10*3/uL [facility] Red Blood Count 4.40 4.20 - 5.50 X10*6/uL [facility] Hemoglobin 12.7 12.0 - 16.0 g/dl [facility] Hematocrit 39.2 37.0 - 47.0 % [facility] Mean Corpuscular Volume 89.1 80.0 - 98.0 fL [facility] Mean Corpuscular Hemoglobin 28.9 27.0 - 33.0 pg [facility] Mean Corpuscular HGB Conc 32.4 31.0 - 35.0 g/dl [facility] Red Cell Distribution Width 11.6 11.0 - 16.0 % [facility] Platelet Count 255 160 - 400 X10*3/uL [facility] Mean Platelet Volume 9.9 9.4 - 12.3 fL [facility] Neutrophils Percent Auto 69.6 45 - 73 % [facility] Imm Gran Pct Auto 0.2 0.0 - 0.4 % [facility] Lymphocytes Percent Auto 20.8 20 - 40 % [facility] Monocytes Percent Auto 7.2 2 - 11 % [facility] Eosinophils Percent Auto 1.6 0 - 4 % [facility] Basophils Percent Auto 0.6 0 - 2 % [facility] NRBC Pct Auto 0.0 0.0 - 0.2 /100WBC [facility] Neutrophils Absolute Auto 5.6 2.0 - 8.3 x10*3/uL [facility] Imm Gran Abs Auto 0.02 0.00 - 0.03 X10*3/uL [facility] Lymphocytes Absolute Auto 1.7 1.2 - 4.9 X10*3/uL [facility] Monocytes Absolute Auto 0.6 0.1 - 1.2 X10*3/uL [facility] Eosinophils Absolute Auto 0.1 0.0 - 0.4 X10*3/uL [facility] Basophils Absolute Auto 0.1 0.0 - 0.2 X10*3/uL [facility] NRBC Abs Auto 0.000 0.0 - 0.012 X10*3/uL [facility] Blood Venous blood specimen / Unknown 05/20/2024 1:51 PM EST 05/20/2024 2:37 PM EST Shahana Kidd MD LAB BLOOD ORDERABLES Final Result [facility] [address] [place] [phone] documented in this encounter Visit Diagnoses Diagnosis Tenderness of neck- Primary documented in this encounter Additional Health Concerns Assessment Noted Time PHQ-9 Depression Total Score: 2 02/19/20 24 10:03 AM EDT documented as of this encounter Care Teams Virtual Assistant Relationship Specialty Start Date End Date Shahana Kidd MD [address] [place] [phone] PCP - General Internal Medicine 06/13/20 documented as of this encounter
--- OUTSIDE RECORDS SUMMARY | 2024-05-21 15:16 | XMS_ITS | Encounter Summary ---
Author Organization [employer] Address [address] [facility] 7 [place] [address] Care Team Providers Care Bone Char Kiln Tender Name Role Phone Shahana Kidd MD Primary Care Provider +1- [phone] Encounter Details Date Type Department Care Team (Latest Contact Info) Description 05/01/2024 Orders Only [facility] [address] [place], [place] [phone] Shahana Kidd MD [address] [place] [address] Hypercholesterolemia (Primary Dx) Social History Tobacco Use [...] documented as of this encounter Care Teams Bone Char Kiln Tender Relationship Specialty Start Date End Date Shahana Kidd MD [address] [place] [address] PCP - General Internal Medicine 06/13/20 documented as of this encounter
--- OUTSIDE RECORDS SUMMARY | 2024-05-21 15:16 | XMS_ITS | Encounter Summary ---
Author Organization [employer] Address [address] [facility] 7 [place] [address] Care Team Providers Care Paper Cutting Machine Operator Name Role Phone Shahana Kidd MD Primary Care Provider +1- [phone] Reason for Visit * Reason Onset Date Comments Lab Results 05/01/2024 Encounter Details Date Type Department Care Team (Late st Contact Info) Description 05/01/[address] [facility] [address] [place] [address] Shahana Kidd MD [address] [place], [place] [phone] Lab Results Social History Tobacco Use Types [...] documented as of this encounter Care Teams Paper Cutting Machine Operator Relationship Specialty Start Date End Date Shahana Kidd MD [address] [place] [address] PCP - General Internal Medicine 06/13/20 documented as of this encounter
--- OUTSIDE RECORDS SUMMARY | 2024-05-21 15:16 | XMS_ITS | Encounter Summary ---
Author Organization [employer] Address [address] [facility] [address] 7[address] [place] [address] Care Team Providers Care Research Affiliate Name Role Phone Shahana Kidd MD Primary Care Provider +1 [phone] Reason for Visit * Reason Onset Date Comments Results 05/13/2024 Encounter Details Date Type Department Care Team ([facility] st Contact Info) Description 05/13/2024 Telephone [facility] [address] [place] [address] Grisel Anton, HERMILO Results Social History Tobacco [...] documented as of this encounter Care Teams Research Affiliate Relationship Specialty Start Date End Date Shahana Kidd MD [address] [place] [phone] PCP - General Internal Medicine 06/13/20 documented as of this encounter
--- OUTSIDE RECORDS SUMMARY | 2024-05-21 15:16 | XMS_ITS | Encounter Summary ---
Author Organization [employer] Address [address] [facility] [address] 7[address] [place] [address] Care Team Providers Care Flash Welding Machine Operator Name Role Phone Shahana Kidd MD Primary Care Provider +1 [phone] Encounter Details Date Type Department Care Team [...] documented as of this encounter Care Teams Flash Welding Machine Operator Relationship Specialty Start Date End Date Shahana Kidd MD [address] [place] [phone] PCP - General Internal Medicine 06/13/20 documented as of this encounter
--- OUTSIDE RECORDS SUMMARY | 2024-05-21 15:16 | XMS_ITS | Encounter Summary ---
Author Organization [employer] Address [address] [facility] 7 [place] [address] Care Team Providers Care Zoogler Name Role Phone Shahana Kidd MD Primary Care Provider +1- [phone] Reason for Visit * Reason Onset Date Comments Lab Orders 05/21/2024 Encounter Details Date Type Department Care Team (Late st Contact Info) Description 05/21/2024 Telephone [facility] [address] [place] [address] Shahana Kidd MD 505 [place] [address] Lab Orders Social History Tobacco Use Types Packs/Day Years [...] encounter Miscellaneous Notes * Telephone Encounter - Hany Tran - 05/21/2024 11:58 AM EST Tc from tc from [facility] stating thyroid orders were sent directly to the dept and the orders would needto be sent to central booking in order to be seen for Labs. If any questions for [facility] you can contact them at [phone]. Central Booking phone: [phone] documented in this encounter Plan of Treatment Not on file documented as of this encounter Visit Diagnoses Not on filedocumented in this encounter Additional Health Concerns Assessment Noted Time PHQ-9 Depression Total Score: 2 02/19/20 24 10:03 AM EDT documented as of this encounter Care Teams Zoogler Relationship Specialty Start Date End Date Shahana Kidd MD [address] [place] [address] PCP - General Internal Medicine 06/13/20 documented as of this encounter
[2024-05-22 07:29] LABS: Triiodothyronine T3 Total 184 ng/dL (76-181)
[2024-05-26 16:22] LABS: Thyroid Stimulating Immunoglob <89 % baseline (<140)
== END 2024-05-21 11:22 | disposition home or self-care (01) ==
LOC: HO.CHCLDS 11:21
PROVIDERS: Visit Provider Internal Medicine
DX: R79.89 Other specified abnormal findings of blood chemistry (principal)
CPT/HCPCS: 36415; 84445; 84480

== ENCOUNTER 2024-06-02 12:10 | Outpatient (REF) | payer MEDICAID, SELFPAY | END 2024-06-02 12:11 | disposition home or self-care (01) | LOC: HO.US 12:10 | PROVIDERS: PCP Internal Medicine; Visit Provider Internal Medicine | DX: R79.89 Other specified abnormal findings of blood chemistry (principal) | CPT/HCPCS: 76536 ==

== ENCOUNTER → 2024-06-02 12:15 | Outpatient (BNV) | payer MEDICAID, SELFPAY | PROVIDERS: PCP Internal Medicine; Visit Provider Radiology Diagnostic Radiology | DX: E04.1 Nontoxic single thyroid nodule (principal) | CPT/HCPCS: 76536 ==

== ENCOUNTER → 2024-06-18 10:17 | Outpatient (REF) | payer MEDICAID, SELFPAY ==
--- NOTE | ~2024-06-18 | NM_ITS ---
EXAMINATION: NM THYROID UPTAKE AND SCAN CLINICAL INFORMATION: Low TSH COMPARISON: Ultrasound thyroid 06/02/2024 TECHNIQUE: Following the oral administration of 0.284 microcuries of I-123 sodium iodide, thyroid uptake was performed and expressed as a percentage of the administrated dose. Gamma scintillation camera images of the thyroid in the anterior and right and left anterior oblique views were obtained using a pinhole collimator following the administration of 10 mCi Tc-99m pertechnetate. FINDINGS: The uptake is 8.77% at 4 hours and 24.02% at 24 hours. On thyroid imaging there is homogeneous activity seen throughout the right and left thyroid lobes which appear normal size. No focal hypointense or hyper intense lesions/defects visualized. NM/NM thyroid w uptake IMPRESSION: Borderline increased radioactive and uptake at 2 hours but normal at 24 hours. Normal thyroid size with no focal hypo or hyper intense lesions seen. Electronically signed by: Brant Ayoub MD 06/22/2024 09:46 AM WILLIAMS
--- OUTSIDE RECORDS SUMMARY | 2024-06-18 11:56 | XMS_ITS | Encounter Summary ---
Author Organization [employer] Address [address] [facility] [address] 7[address] [place] [address] Care Team Providers Care Distance Education Teacher Name Role Phone Shahana Kidd MD Primary Care Provider +1 [phone] Reason for Visit * Reason Onset Date Comments Results 05/26/2024 Encounter Details Date Type Department Care Team ([facility] st Contact Info) Description 05/26/2024 Telephone [facility] [address] [place] [address] Grisel Anton, HERMILO Results Social History Tobacco [...] Telephone Encounter - Grisel Anton RN - 05/26/2024 9:16 AM EST TC placed to pt to inform of thyroid results below showing elevated T3 levels requiring a NM Thyroid Scan. RN called [facility] Centralized Scheduling who confirms that they did receive the order from Dr. Kidd and need the pt to contact them to schedule. Pt was given the number for [facility] Centralized Scheduling [phone] and advised to call as soon as possible. Pt agreeable to this information and stated understanding. ----- Message from Shahana Kidd MD sent at 05/22/2024 10:06 AM EST ----- Please call. 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 Pt needs an thyroid scan. Please find out w/ C if she can be scheduled ROXANN. The order was placed yesterday. A referral to Endocrinology wasalso generated. documented in this encounter Plan of Treatment Not on file documented as of this encounter Visit Diagnoses Not on filedocumented in this encounter Additional Health Concerns Assessment Noted Time PHQ-9 Depression Total Score: 2 02/19/20 24 10:03 AM EDT documented as of this encounter Care Teams Distance Education Teacher Relationship Specialty Start Date End Date Shahana Kidd MD [address] [place] [address] PCP - General Internal Medicine 06/13/20 documented as of this encounter
--- OUTSIDE RECORDS SUMMARY | 2024-06-18 11:56 | XMS_ITS | Encounter Summary ---
Author Organization [employer] Address [address] [facility] 7 [place] [address] Care Team Providers Care Psych Sales Specialist Name Role Phone Shahana Kidd MD Primary Care Provider +1- [phone] Reason for Visit * Reason Comments Med Refill Encounter Details Date Type Department Care Team ([facility] Contact Info) Description 06/14/2024 Refill [facility] [address] [place] [address] Shahana Kidd MD [address] [place] [address] Tenderness of neck Social History Tobacco Use Types Packs/Day Years [...] as of this encounter Visit Diagnoses Diagnosis Tenderness of neck documented in this encounter Additional Health Concerns Assessment Noted Time PHQ-9 Depression Total Score: 2 02/19/20 24 10:03 AM EDT documented as of this encounter Care Teams Psych Sales Specialist Relationship Specialty Start Date End Date Shahana Kidd MD [address] [place] [address] PCP - General Internal Medicine 06/13/20 documented as of this encounter
--- OUTSIDE RECORDS SUMMARY | 2024-06-18 11:56 | XMS_ITS | Encounter Summary ---
Author Organization [employer] Address [address] [facility] 7 [place] [address] Care Team Providers Care Community Relations Representative Name Role Phone Shahana Kidd MD Primary Care Provider +1- [phone] Reason for Visit * Reason Onset Date Comments Call Back Request 05/22/2024 Encounter Details Date Type Department Care Team ([facility] st Contact Info) Description 05/22/2024 Telephone [facility] [address] [place] [address] Shahana Kidd MD 505 [place] [address] Call Back Request Social History Tobacco Use Types Packs/Day Years [...] encounter Miscellaneous Notes * Telephone Encounter - Stephanie Sanches RN - 05/22/2024 12:10 PM EST [facility] is requesting US order for NM thyroid uptake and Tenderness of neck. Could you please send order. * Telephone Encounter - London Lopez - 05/22/2024 10:41 AM EST TC from [facility] requesting once U/S results has been received to fax to their office [phone] * Telephone Encounter - Nae Marin - 05/22/2024 9:38 AM EST Tc from Gurmeet with [facility] requesting clarification on ultrasound that pt needs to get done for NM THYROID UPTAKE and TENDERNESS OF NECK. Please contact Gurmeet at [phone] documented in this encounter Plan of Treatment Not on file documented as of this encounter Visit Diagnoses Not on filedocumented in this encounter Additional Health Concerns Assessment Noted Time PHQ-9 Depression Total Score: 2 02/19/20 24 10:03 AM EDT documented as of this encounter Care Teams Community Relations Representative Relationship Specialty Start Date End Date Shahana Kidd MD [address] [place] [phone] PCP - General Internal Medicine 06/13/20 documented as of this encounter
--- OUTSIDE RECORDS SUMMARY | 2024-06-18 11:56 | XMS_ITS | Encounter Summary ---
Author Organization [employer] Address [address] [facility] 7 [place] [address] Care Team Providers Care Manager Employee Relations Name Role Phone Shahana Kidd MD Primary Care Provider +1- [phone] Encounter Details Date Type Department Care Team (Latest Contact Info) Description 05/01/2024 Orders Only [facility] [address] [place], [place] [phone] Shahana Kidd MD [address] [place] [address] Hypercholesterolemia (Primary Dx) Social History Tobacco Use [...] documented as of this encounter Care Teams Manager Employee Relations Relationship Specialty Start Date End Date Shahana Kidd MD [address] [place] [phone] PCP - General Internal Medicine 06/13/20 documented as of this encounter
--- OUTSIDE RECORDS SUMMARY | 2024-06-18 11:56 | XMS_ITS | Encounter Summary ---
Author Organization [employer] Address [address] [facility] 7 [place] [address] Care Team Providers Care Cut Out Operator Name Role Phone Shahana Kidd MD Primary Care Provider +1- [phone] Encounter Details Date Type Department Care Team ([facility] st Contact Info) Description 05/20/2024 Orders Only [facility] [address] [place], [place] [phone] Shahana Kidd MD 505 [place] [address] Social History Tobacco Use Types Packs/Day Years [...] (Free Thyroxine) 1.84 0.71 - 1.85 ng/dL [facility] 05/20/2024 1:51 PM EST 05/20/2024 2:37 PM EST us Shahana Kidd MD LAB BLOOD ORDERABLES Final Result [facility] [address] [place] [phone] documented in this encounter Visit Diagnoses Not on filedocumented in this encounter Additional Health Concerns Assessment Noted Time PHQ-9 Depression Total Score: 2 02/19/20 24 10:03 AM EDT documented as of this encounter Care Teams Cut Out Operator Relationship Specialty Start Date End Date Shahana Kidd MD [address] [place] [phone] PCP - General Internal Medicine 06/13/20 documented as of this encounter
--- OUTSIDE RECORDS SUMMARY | 2024-06-18 11:56 | XMS_ITS | Encounter Summary ---
Author Organization [employer] Address [address] [facility] 7 [place] [address] Care Team Providers Care Process Controller Name Role Phone Shahana Kidd MD Primary Care Provider +1- [phone] Reason for Visit * Reason Onset Date Comments Lab Orders 05/21/2024 Encounter Details Date Type Department Care Team (Late st Contact Info) Description 05/21/2024 Telephone [facility] [address] [place] [address] Shahana Kidd MD 505 [place] [address] Lab Orders Social History Tobacco Use Types [...] Encounter - Stephanie Sanches RN - 05/22/2024 10:30 AM EST New orders sent. * Telephone Encounter - Hany Tran - 05/21/2024 11:58 AM EST Tc from tc from [facility] stating thyroid orders were sent directly to the dept and the orders would needto be sent to central booking in order to be seen for Labs. If any questions for [facility] you can contact them at [phone]. Central Booking phone: [phone] documented in this encounter Plan of Treatment Not on file documented as of this encounter Visit Diagnoses Not on filedocumented in this encounter Additional Health Concerns Assessment Noted Time PHQ-9 Depression Total Score: 2 02/19/20 24 10:03 AM EDT documented as of this encounter Care Teams Process Controller Relationship Specialty Start Date End Date Shahana Kidd MD [address] [place] [phone] PCP - General Internal Medicine 06/13/20 documented as of this encounter
--- OUTSIDE RECORDS SUMMARY | 2024-06-18 11:56 | XMS_ITS | Encounter Summary ---
Author Organization [employer] Address [address] [facility] 7 [place] [address] Care Team Providers Care Certified Master Safecracker Name Role Phone Shahana Kidd MD Primary Care Provider +1- [phone] Encounter Details Date Type Department Care Team ([facility] st Contact Info) Description 10/03/2023 Orders Only [facility] 505 [place], [place] [phone] Shahana Kidd MD 505 [place] [address] Allergy, subsequent encounter Social History Tobacco Use [...] documented as of this encounter Care Teams Certified Master Safecracker Relationship Specialty Start Date End Date Shahana Kidd MD [address] [place] [phone] PCP - General Internal Medicine 06/13/20 documented as of this encounter
--- OUTSIDE RECORDS SUMMARY | 2024-06-18 11:56 | XMS_ITS | Encounter Summary ---
Author Organization [employer] Address [address] [place] [address] 7 [place] [address] Care Team Providers Care Special Education Itinerant Teacher Name Role Phone Shahana Kidd MD Primary Care Provider [phone] Reason for Referral * Imaging (Routine) - Closed Specialty Diagnoses / Procedures Referred By Daniel t Referred To Contact Radiology Diagnoses Low TSH level Procedures US Thyroid Shahana Kidd MD [address] [place] [address] Phone: tel: fax: [address] Phone: tel: fax: Referral ID Status Reason Start Date Expiration Date Visits Re quested Visits Authorized [id number] Closed 05/22/2024 05/22/2025 1 1 * Imaging (Routine) - Authorized Specialty Diagnoses / Procedures Referred By Contac t Referred To Contact Radiology Diagnoses Low TSH level Procedures NM Thyroid Uptake Shahana Kidd MD [address] [place] [address] Phone: tel: fax: [address] Phone: tel: fax: Referral ID Status Reason Start Date Expiration Date V isits Requested Visits Authorized [id number] Authorized 05/21/2024 05/21/2025 3 1 * Consultation (Urgent) - Authorized Specialty Diagnoses / Procedures Referred By Contac t Referred To Contact Endocrinology Diagnoses Low TSH level Shahana Kidd MD [address] [place] [address] Phone: tel: fax: [facility] [address] [facility] 3rd [address] [place], [place] Phone: tel: fax: Referral ID Status Reason Start Date Expiration Date Visits Requested Visits Authorized [id number] Authorized Specialty Services Required 05/20/2024 05/20/2025 1 1 Encounter Details Date Type Department Care Team ([facility] st Contact Info) Description 05/20/2024 Orders Only [facility] [address] [place] [address] Shahana Kidd MD [address] [place] [address] Low TSH level (Primary Dx) Social History [...] as of this encounter Miscellaneous Notes * Result Encounter Note - Shahana Kidd MD - 05/20/2024 8:24 PM EST Please call. 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 Pt needs an thyroid scan. Please find out w/ [facility] if she can be scheduled ROXANN. The order was placed yesterday. A referral to Endocrinology wasalso generated. documented in this encounter Plan of Treatment Scheduled Orders Name Type Priority Associated Diagnoses Orde r Schedule NM Thyroid Uptake Imaging Routine Low TSH level Expected: 05/21/2024, Expires: 05/21/2025 Scheduled Referrals Name Type Priority Associated Diagnoses Order Schedule Referral to Endocrinology Outpatient Referral Urgent Low TSH level Expected: 05/20/2024 (Approximate), Expires: 05/20/2025 documented as of this encounter Procedures Procedure Name Priority Date/Time Associated Diagnosis Comments US THYROID Routine 06/02/2024 12:15 PM EST Low TSH level TSI (THYROID STIMULATING IMMUNOGLOBULIN) Routine 05/21/2024 11:22 AM EST Low TSH level T3, TOTAL Routine 05/21/2024 11:22 AM EST Low TSH level documented in this encounter Results * US Thyroid (06/02/2024 12:15 PM EST) Anatomical Region Laterality Modality Head, Neck Ultrasound 06/02/2024 12:1 5 PM EST Narrative 06/15/2024 11:06 AM EST ? [facility] ?[address] ?[place] [address] ? Ultrasound Report ? Signed ? Patient: Kandy Mcdaniels A ?MR#: [id number] ?? [id number] ? : 1960 ?Acct:[id number] ? Age/Sex: 63 / F ?ADM Date: 06/02/24 ? Loc: HO.US ? Attending Dr: Shahana Kidd MD ? Ordering Physician: Shahana Kidd MD ?? Date of Service: 06/02/24 ?? Procedure(s): US thyroid ?? Accession Number(s): [id number] ? cc: Shahana Kidd MD ? EXAMINATION: ?? US THYROID ? CLINICAL INFORMATION: ?? Tenderness, left thyroid nodule. ? COMPARISON: ?? None available. ? TECHNIQUE: ?? Linear transducer grayscale and color Doppler examination with ?? attention to the region of the thyroid. ? FINDINGS: ? SIZE: Measurements of the thyroid lobes and nodules are given in ?? sagittal, anteroposterior and transverse dimensions respectively. ? Right Thyroid Lobe: 3.3 x 1.2 x 1.0 cm, volume 2 mL. ?? Parenchyma: The gland echotexture is heterogeneous. Thyroid vascularity ?? is increased. ? Left Thyroid Lobe: 3.6 x 1.0 x 0.9 cm, volume 2 mL. ?? Parenchyma: The gland echotexture is heterogeneous. Thyroid vascularity ?? is increased. ? Isthmus: 0.4 cm in maximum AP dimension. ? Estimated total number of nodules greater than or equal to 1 cm: 0. ?? Music Copyist nodules are described as follows: ? 1. Location: Lower pole, left lobe. ? Size: 0.5 x 0.4 x 0.5 cm, volume 0.04 mL. ? Nodule characteristics: ? Composition: Mixed cystic and solid (1). ? Echogenicity: 1 ? Shape: Not taller than wide (0). ? Margins: Smooth (0). ? Echogenic Foci: None (0). ? ACR TI-RADS total points: 2 ? ACR TI-RADS category: 2 ? 2. Location: Upper pole, left lobe.. ? Size: 0.5 x 0.6 x 0.7 cm, volume 0.11 mL. ? Nodule characteristics: ? Composition: Solid (2). ? Echogenicity: 1 ? Shape: Not taller than wide (0). ? Margins: Smooth (0). ? Echogenic Foci: None (0). ? ACR TI-RADS total points: 3 ? ACR TI-RADS category: 3 ? NODES: No lymphadenopathy is seen in the tissue surrounding the thyroid ?? gland. ? US/US thyroid ?? IMPRESSION: ?? ACR TI RADS 2 and 3 ? ACR TI-RADS RECOMMENDATION REFERENCE: ?? Ultrasound-guided fine-needle aspiration, followup ultrasound, no ?? further follow up. ? * TR1 (0 point) and TR2 (2 points): No FNA or follow up. ? * TR3 (3 points): FNA if more than or equal to 2.5 cm in maximum ?? dimension, followup ultrasound in 1, 3 and 5 years if 1.5 to 2.4 cm in ?? maximum dimension. ? * TR4 (4-6 points): FNA if more than or equal to 1.5 cm in maximum ?? dimension, followup ultrasound in 1, 2, 3 and 5 years if 1 to 1.4 cm in ?? maximum dimension. ? * TR5 (more than or equal to 7 points): FNA if more than or equal to 1 ?? cm in maximum dimension, followup ultrasound every year for 5 years if ?? 0.5 to 0.9 cm in maximum dimension. ? * TR3, TR4 or TR5 nodules that are below the size threshold for ?? followup receive no follow up. ? Electronically signed by: ??Lavell Smith MD ??06/15/2024 11:02 AM ?? EST ? Dictated By: ?Lavell Galloway MD ? Signed By: ?<Electronically signed by Lavell Snider MD in OV> ? 06/15/24 1102 ? DD/ 1215 ? TD/TT: 06/02/24 1230 ? Director Broadcast: ? Procedure Note Kesha, Image - 06/15/2024 [place] [id number] Ultrasound Report Signed Patient: Kandy Mcdaniels AMR#: [id number] : 1Acct:[id number] Age/Sex: 63 / FADM Date: 06/02/24 Loc: HO.US Attending Dr: Shahana Kidd MD Ordering Physician: Shahana Kidd MD Date of Service: 06/02/24 Procedure(s): US thyroid Accession Number(s): [id number] cc: Shahana Kidd MD EXAMINATION: US THYROID CLINICAL INFORMATION: Tenderness, left thyroid nodule. COMPARISON: None available. TECHNIQUE: Linear transducer grayscale and color Doppler examination with attention to the region of the thyroid. FINDINGS: SIZE: Measurements of the thyroid lobes and nodules are given in sagittal, anteroposterior and transverse dimensions respectively. Right Thyroid Lobe: 3.3 x 1.2 x 1.0 cm, volume 2 mL. Parenchyma: The gland echotexture is heterogeneous. Thyroid vascularity is increased. Left Thyroid Lobe: 3.6 x 1.0 x 0.9 cm, volume 2 mL. Parenchyma: The gland echotexture is heterogeneous. Thyroid vascularity is increased. Isthmus: 0.4 cm in maximum AP dimension. Estimated total number of nodules greater than or equal to 1 cm: 0. Music Copyist nodules are described as follows: 1. Location: Lower pole, left lobe. Size: 0.5 x 0.4 x 0.5 cm, volume 0.04 mL. Nodule characteristics: Composition: Mixed cystic and solid (1). Echogenicity: 1 Shape: Not taller than wide (0). Margins: Smooth (0). Echogenic Foci: None (0). ACR TI-RADS total points: 2 ACR TI-RADS category: 2 2. Location: Upper pole, left lobe.. Size: 0.5 x 0.6 x 0.7 cm, volume 0.11 mL. Nodule characteristics: Composition: Solid (2). Echogenicity: 1 Shape: Not taller than wide (0). Margins: Smooth (0). Echogenic Foci: None (0). ACR TI-RADS total points: 3 ACR TI-RADS category: 3 NODES: No lymphadenopathy is seen in the tissue surrounding the thyroid gland. US/US thyroid IMPRESSION: ACR TI RADS 2 and 3 ACR TI-RADS RECOMMENDATION REFERENCE: Ultrasound-guided fine-needle aspiration, followup ultrasound, no further follow up. * TR1 (0 point) and TR2 (2 points): No FNA or follow up. * TR3 (3 points): FNA if more than or equal to 2.5 cm in maximum dimension, followup ultrasound in 1, 3 and 5 years if 1.5 to 2.4 cm in maximum dimension. * TR4 (4-6 points): FNA if more than or equal to 1.5 cm in maximum dimension, followup ultrasound in 1, 2, 3 and 5 years if 1 to 1.4 cm in maximum dimension. * TR5 (more than or equal to 7 points): FNA if more than or equal to 1 cm in maximum dimension, followup ultrasound every year for 5 years if 0.5 to 0.9 cm in maximum dimension. * TR3, TR4 or TR5 nodules that are below the size threshold for followup receive no follow up. Electronically signed by: Lavell Smith MD 06/15/2024 11:02 AM EST RP Dictated By: Lavell Galloway MD Signed By: <Electronically signed by Lavell Snider MDin OV> 06/15/24 1102 DD/ 1215 TD/TT: 06/02/24 1230 Director Broadcast: us Shahana Kidd MD IMG US PROCEDURES Final Res ult * TSI (Thyroid Stimulating Immunoglobulin) (05/21/2024 11:22 AM EST) Thyroid Stimulating Immunoglobulin <89 <140 % baseline [facility] Comment: Thyroid stimulating immunoglobulins (TSI) can engagethe TSH receptors resulting in hyperthyroidism inGraves' disease patients. TSI levels can be useful inmonitoring the clinical outcome of Graves' disease aswell as assessing the potential for hyperthyroidismfrom maternal- transfer. TSI results greater thanor equal to (>=) 140% of the Reference Control areconsidered positive.NOTE:A serum TSH level greater than 350 micro-InternationalUnits/mL can interfere with the TSI bioassay andpotentially give false positive results.Patients who are and are suspected of havinghyperthyroidism should have both TSI and humanChorionic Gonadotropin(hCG) tests measured. A serumhCG level greater than 40,625 mIU/mL can interferewith the TSI bioassay and may give false negativeresults. In these patients it is recommended thata second TSI be obtained when the hCG concentrationfalls below 40,625 mIU/mL (usually after [id number] gestation).The analytical performance characteristics of thisassay have been determined by [employer], [place]. ??The modificationshave not been cleared or approved by the FDA. ??Thisassay has been validated pursuant to the CLIAregulations and is used for clinical purposes.THIS TEST WAS PERFORMED AT:[employer] [place], [place] ??[id number] VANCE MD,PHD Blood Venous blood specimen / Unknown 05/21/2024 11:22 AM EST 05/21/2024 2:01 PM EST us Shahana Kidd MD LAB BLOOD ORDERABLES Final Result Performing Organization Address [facility] de Phone Number [facility] [address] [place] [address] [phone] * (ABNORMAL) T3, Total (05/21/2024 11:22 AM EST) T3, Total 184(A) 76 - 181 ng/dL [facility] Comment:THIS TEST WAS PERFOR MED AT:[facility] [place] [id number] POE MD Blood Venous blood specimen / Unknown 05/21/2024 11:22 AM EST 05/21/2024 2:01 PM EST Shahana Kidd MD LAB BLOOD ORDERABLES Final Result Performing Organization Address [facility] de Phone Number [facility] [address] [place] [phone] documented in this encounter Visit Diagnoses Diagnosis Low TSH level- Primary documented in this encounter Additional Health Concerns Assessment Noted Time PHQ-9 Depression Total Score: 2 02/19/20 24 10:03 AM EDT documented as of this encounter Care Teams Special Education Itinerant Teacher Relationship Specialty Start Date End Date Shahana Kidd MD [address] [place] [phone] PCP - General Internal Medicine 06/13/20 documented as of this encounter
--- OUTSIDE RECORDS SUMMARY | 2024-06-18 11:56 | XMS_ITS | Clinical Summary ---
Author Organization [employer] Address [address] [facility] 7t [place] [address] Care Team Providers Care Computer Aided Design Designer Name Role Phone Shahana Kidd MD Primary Care Provider [phone] Allergies No known active allergies Medications cetirizine (ZyrTEC) 10 MG tabletIndicati ons:Allergy, subsequent encounter Take 1 tablet (10 mg) by mouth Once per day. 30 tablet 10/03/19 24 025 Active fluticasone (Flonase) 50 MCG/ACT nasal sprayIndicatio ns:Allergy, subsequent encounter Administer 1 spray into each nostril 2 times daily. Shake gently. Before first use, prime pump. After use, clean tip and replace cap. 16 g 11 10/03/19 24 Active atorvastatin (Lipitor) 80 MG tabletIndicati ons:Hyperchole sterolemia Take 1 tablet (80 mg) by mouth Once per day. 30 tablet 05/01/19 25 026 Active naproxen (Naprosyn) 500 MG tabletIndicati ons:Tenderness of neck TAKE 1 TABLET(500 MG) BY MOUTH TWICE DAILY 60 tablet 06/15/19 25 Active naproxen (Naprosyn) 500 MG tabletIndicati ons:Tenderness of neck Take 1 tablet (500 mg) by mouth 2 times daily. 60 tablet 05/20/19 25 025 Discontinued Active Problems Problem Noted Date Diagnosed Date Hypercholesterolemia 02/25/2024 Allergy 11/05/1992 Encounters Date Type Department Care Team Description 06/14/2024 Refill [facility] [address] [place] [address] Shahana Kidd MD Tenderness of neck 05/26/2024 Telephone [facility] [address] [place] [address] Grisel Anton, RN Results 05/22/[address] [address] Shahana Kidd MD Call Back Request 05/21/[address] [address] Shahana Kidd MD Lab Orders 05/20/2024 1:20 PM EST Office Visit [facility] [address] [place] [address] Shahana Kidd MD Tenderness of neck (Primary Dx) 05/20/2024 Orders Only [facility] [address] [place] [address] Shahana Kidd MD Low TSH level (Primary Dx) 05/20/2024 Orders Only [facility] [address] [place] [address] Shahana Kidd MD 05/20/2024 Travel 05/13/2024 Telephone [facility] [address] [place] [address] Grisel Anton, RN Results 05/07/2024 2:00 PM EST Office Visit [facility] [address] [place] [address] Celsa Velarde MD Acute otitis externa of left ear, unspecified type (Primary Dx); Pharyngitis, unspecified etiology 05/07/2024 Travel 05/01/2024 Telephone [facility] [address] [place] [phone] Shahana Kidd MD Lab Results 05/01/2024 Orders Only [facility] [address] [place] [address] Shahana Kidd MD Hypercholesterolemia (Primary Dx) from Last 3 Months Immunizations Name Administration [...] 05/21/2024 11:22 AM EST Low TSH level T4, FREE Routine 05/20/2024 1:51 PM EST [...] 02/24/2024 10:41 AM EST Annual physical exam THINPREP PAP AND HPV MRNA E6/E7 Routine 05/08/2022 12:00 AM EST from Last 3 Months or Most Recently Relevant to Health Maintenance Results * US Thyroid (06/02/2024 12:15 PM EST) Anatomical Region Laterality Modality Head, Neck Ultrasound 06/02/2024 12:1 5 PM EST Narrative 06/15/2024 11:06 AM EST ? [facility] ?[address] ?[place] [address] ? Ultrasound Report ? Signed ? Patient: Mcdaniels,Kandy A ?MR#: [id number] ?? [id number] ? : 1960 ?Acct:[id number] ? Age/Sex: 63 / F ?ADM Date: 06/02/24 ? Loc: HO.US ? Attending Dr: Shahana Kidd MD ? Ordering Physician: Shahana Kidd MD ?? Date of Service: 06/02/24 ?? Procedure(s): US thyroid ?? Accession Number(s): [id number] ? cc: Shahana Kidd MD ? EXAMINATION: [...] or equal to 1 cm: 0. ?? Sheet Metal Contractor nodules are described as follows: ? 1. [...] Smith MD ??06/15/2024 11:02 AM ?? EST RP ? Dictated By: ?Lavell Galloway MD ? Signed By: ?<Electronically signed by Lavell Snider MD in OV> ? 06/15/24 1102 ? DD/ 1215 ? TD/TT: 06/02/24 1230 ? Practicing Md Anesthesiologist: ? Procedure Note Kesha, Image - 06/15/[address] [address] Ultrasound Report Signed Patient: Kandy Mcdaniels AMR#: [id number] : 1Acct:[id number] Age/Sex: 63 / FADM Date: 06/02/24 Loc: HO.US Attending Dr: Shahana Kidd MD Ordering Physician: Shahana Kidd MD Date of Service: 06/02/24 Procedure(s): US thyroid Accession Number(s): [id number] cc: Shahana Kidd MD EXAMINATION: US THYROID [...] than or equal to 1 cm: 0. Sheet Metal Contractor nodules are described as follows: 1. Location: [...] Lavell Smith MD 06/15/2024 11:02 AM EST Dictated By: Lavell Galloway MD Signed By: <Electronically signed by Lavell Snider MDin OV> 06/15/24 1102 DD/ 1215 TD/TT: 06/02/24 1230 Practicing Md Anesthesiologist: us Shahana Kidd MD IM US PROCEDURES Final Res ult * TSI (Thyroid Stimulating Immunoglobulin) (05/21/2024 11:22 AM EST) Thyroid Stimulating Immunoglobulin <89 <140 % baseline [facility] Comment: Thyroid stimulating immunoglobulins (TSI) [...] hCG concentrationfalls below 40,625 mIU/mL (usually after -vgjaq gestation).The analytical performance characteristics of thisassay have been determined by [place]. ??The modificationshave not been cleared or approved by the FDA. ??Thisassay has been validated pursuant to the CLIAregulations and is used for clinical purposes.THIS TEST WAS PERFORMED AT:[facility] [place], [place] ??[phone] W. MASON,MD,PHD Blood Venous blood specimen / Unknown 05/21/2024 11:22 AM EST 05/21/2024 2:01 PM EST us Shahana Kidd MD LAB BLOOD ORDERABLES Final Result Performing Organization Address [facility] de Phone Number [facility] [address] [place] [phone] * (ABNORMAL) T3, Total (05/21/2024 11:22 AM EST) T3, Total 184(A) 76 - 181 ng/dL [facility] Comment:THIS TEST WAS PERFOR MED AT:[facility] [address] [id number] POE MD Blood Venous blood specimen / Unknown 05/21/2024 11:22 AM EST 05/21/2024 2:01 PM EST Shahana Kidd MD LAB BLOOD ORDERABLES Final Result Performing Organization Address [facility] Co de Phone Number [facility] [address] [place] [phone] * (ABNORMAL) TSH W/Reflex to FT4 (05/20/2024 1:51 PM EST) TSH reflex Free T4 <0.01(L) 0.32 - 4.0 uIU/mL [facility] Blood Venous blood specimen / Unknown 05/20/2024 1:51 PM EST 05/20/2024 2:37 PM EST us Shahana Kidd MD LAB BLOOD ORDERABLES Final Result [facility] [address] [place] [address] [phone] * CBC auto differential (05/20/2024 1:51 PM EST) Pathologist [facility] White Blood Count 8.0 4.8 - 10.8 X10*3/uL [facility] Red Blood Count 4.40 4.20 - 5.50 X10*6/uL [facility] Hemoglobin 12.7 12.0 - 16.0 g/dl [facility] Hematocrit 39.2 37.0 - 47.0 % [facility] Mean Corpuscular Volume 89.1 80.0 - 98.0 fL [facility] Mean Corpuscular Hemoglobin 28.9 27.0 - 33.0 pg [facility] Mean Corpuscular HGB Conc 32.4 31.0 - 35.0 g/dl [facility] Red Cell Distribution Width 11.6 11.0 - 16.0 % [facility] Platelet Count 255 160 - 400 X10*3/uL [facility] Mean Platelet Volume 9.9 9.4 - 12.3 fL [facility] Neutrophils Percent Auto 69.6 45 - 73 % [facility] Imm Gran Pct Auto 0.2 0.0 - 0.4 % [facility] Lymphocytes Percent Auto 20.8 20 - 40 % [facility] Monocytes Percent Auto 7.2 2 - 11 % [facility] Eosinophils Percent Auto 1.6 0 - 4 % [facility] Basophils Percent Auto 0.6 0 - 2 % [facility] NRBC Pct Auto 0.0 0.0 - 0.2 /100WBC [facility] Neutrophils Absolute Auto 5.6 2.0 - 8.3 x10*3/uL [facility] Imm Gran Abs Auto 0.02 0.00 - 0.03 X10*3/uL [facility] Lymphocytes Absolute Auto 1.7 1.2 - 4.9 X10*3/uL [facility] Monocytes Absolute Auto 0.6 0.1 - 1.2 X10*3/uL [facility] Eosinophils Absolute Auto 0.1 0.0 - 0.4 X10*3/uL [facility] Basophils Absolute Auto 0.1 0.0 - 0.2 X10*3/uL [facility] NRBC Abs Auto 0.000 0.0 - 0.012 X10*3/uL [facility] Blood Venous blood specimen / Unknown 05/20/2024 1:51 PM EST 05/20/2024 2:37 PM EST us Shahana Kidd MD LAB BLOOD ORDERABLES Final Result Performing Organization Address [facility]/State/ZIP Co de Phone Number [facility] [address] [place] [address] [phone] * (ABNORMAL) Sed Rate by Modified Harsharen (05/20/2024 1:51 PM EST) Erythrocyte Sedimentation Rate 67(H) 0 - 20 MM/HR [facility] Comment:Patients with polycy themia and many hemoglobin abnormalitiesmay have depressed sed rates whereas patients with anemiamay have elevated sed rates. Blood Venous blood specimen / Unknown 05/20/2024 1:51 PM EST 05/20/2024 2:37 PM EST Shahana Kidd MD LAB BLOOD ORDERABLES Final Result Performing Organization Address City/State/[facility] de Phone Number [facility] [address] [place] [phone] * (ABNORMAL) C-reactive Protein (05/20/2024 1:51 PM EST) C Reactive Protein 4.00(H) < or = 0.50 mg/dL [facility] Blood Venous blood specimen / Unknown 05/20/2024 1:51 PM EST 05/20/2024 2:37 PM EST us Shahana Kidd MD LAB BLOOD ORDERABLES Final Result Performing Organization Address [facility] Number [facility] [address] [place] [phone] * T4, Free (05/20/2024 1:51 PM EST) Free T4 (Free Thyroxine) 1.84 0.71 - 1.85 ng/dL [facility] 05/20/2024 1:51 PM EST 05/20/2024 2:37 PM EST us Shahana Kidd MD LAB BLOOD ORDERABLES Final Result Performing Organization Address [facility] Number [facility] [address] [place] [phone] * Culture, Throat (05/07/2024 3:36 PM EST) Throat Structure of anterior portion of neck / Unknown 05/07/2024 3:36 PM EST 05/07/2024 5:50 PM EST Comment:Throat Narrative [facility] - 05/09/2024 8:40 AM EST Throat Culture No Group A Beta-hemolytic Streptococci isolated. Specimen Source: Throat us Celsa Velarde MD LAB MICROBIOLOGY - GENERAL OR DERABLES Final Result Performing Organization Address [facility] Co de Phone Number [facility] [address] [place] [phone] * POCT rapid strep A manually resulted (05/07/2024 3:05 PM EST) [facility] Rapid Strep A Screen Negative Negative, None Detected QC Media Lot # Comment:[id number] Lot# Expiration Date Comment: Swab 05/07/2024 3:05 PM EST Celsa Velarde MD POINT OF CARE TEST ENTER/EDIT ORDERABLES Final Result * POCT Rapid COVID Ag (05/07/2024 3:05 PM EST) [facility] Rapid COVID Ag Negative QC Media Lot # Comment:[id number] Lot# Expiration Date Comment:07/07/2025 Swab 05/07/2024 3:05 PM EST Celsa Velarde MD POINT OF CARE TEST ENTER/EDIT ORDERABLES Final Result * (ABNORMAL) Lipid Panel, Standard (04/29/2024 10:56 AM EST) [facility] Triglycerides 105 <150 mg/dL [facility] Comment:Desirable Triglyceri de: less than 150 mg/dLBorderline High Triglyceride 150-199 mg/dLHigh Triglyceride: 200-499 mg/dLVery High Triglyceride: greater than or equal to 5OO mg/dL Cholesterol 298(H) <200 mg/dL [facility] Comment:Desirable Cholestero l: less than 200 mg/dLBorderline High Cholesterol: 200-239 mg/dLHigh Cholesterol: greater than 239 mg/dL LDL Cholesterol Calculated 220(H) <100 mg/dL [facility] Comment:Desirable LDL: less than 100 mg/dLNear Optimal/Above Optimal LDL: 110- 129 mg/dLBorderline High LDL: 130-159 mg/dLHigh LDL: 160-189 mg/dLVery High LDL: greater than or equal to 190 mg/dL HDL Cholesterol 57 >40 mg/dL [facility] Comment:Desirable HDL: great er than 40 mg/dL Note: This HDL assay may give artificially low results in patients with liver disease. Blood Venous blood specimen / Unknown 04/29/2024 10:56 AM EST 04/29/2024 2:17 PM EST us Shahana Kidd MD LAB BLOOD ORDERABLES Final Result [facility] [address] [place] [phone] * Cologuard?? colon cancer screening (04/29/2024 8:15 AM EST) Cologuard Result Negative Negative 05/07/19 10:15 AM EST [facility] (CLIA #:[id number]) Comment: NEGATIVE TEST RESULT. A negative Cologuard [...] screened with both Cologuard and colonoscopy. (Nohemi Mace et al, N Engl J Med 2014;370(14):1286- 1297) The normal value (reference range) for this assay is negative. COLOGUARD RE-SCREENING RECOMMENDATION: Periodic colorectal cancer screening is an important part of preventive healthcare for asymptomatic individuals at average risk for colorectal cancer. ??Following a negative Cologuard result, the [place] [employer] Society and U.S. Multi-Society Task Force screening guidelines recommend a Cologuard re-screening interval of 3 years. References: [place] [employer] Guideline for Colorectal Cancer Screening: https://www.cancer.org/cancer/nndrc-bfgkyw-eghlbf/jpxhzrdez-pfzciuvfs-dighelu/ac s-rec ommendations.html.; [place], Buzz CR, Alex MARTINI, Colorectal Cancer Screening: Recommendations for Physicians and Patients from the U.S. Multi-Society Task Force on Colorectal Cancer Screening , Am J Gastroenterology 2017; 112:0768-9207. TEST DESCRIPTION: Composite algorithmic analysis of stool [...] screened with both Cologuard and colonoscopy. (Nohemi Kidd. et al, N Engl J Med 2014;370(14):5230-3837.) Cologuard may produce a false negative or false positive result (no colorectal cancer or precancerous polyp present at colonoscopy follow up). A negative Cologuard test result does not guarantee the absence of CRC or advanced adenoma (pre-cancer). The current Cologuard screening interval is every 3 years. ([place] [employer] Society and U.S. Multi-Society Task Force). Cologuard performance data in a 10,000 patient pivotal study using colonoscopy as the reference method can be accessed at the following location: www.S3Bubble/results. Additional description of the Cologuard test process, warnings and precautions can be found at www.[employer]rd.com. Stool specimen (specimen) 04/29/2024 8:15 AM EST 05/01/2024 12:16 PM EST us Thevenin Beauzile MD LAB MOLECULAR DIAGNOSTICS O RDERABLES Final Result [facility] (CLIA #:[id number]) [place] [place] [address], * Hepatitis C Antibody with Reflex to HCV, RNA, Quantitative, Real-Time PCR (02/24/2024 10:41 AM EST) Hepatitis C Antibody Nonreactive Nonreactive [facility] Comment:Antibodies to HCV no t detected; does not exclude early acuteHCV infection. Blood Venous blood specimen / Unknown 02/24/2024 10:41 AM EST 02/24/2024 2:39 PM EST Shahana Kidd MD LAB BLOOD ORDERABLES Final Result Performing Organization Address [facility]/ZIP Co de Phone Number [facility] [address] [place] [phone] * HIV-1/2 Antigen and Antibodies, Fourth Generation, with Reflexes (02/24/2024 10:41 AM EST) HIV AB/AG Nonreactive Nonreactive [facility] Comment:HIV-1 p24 Ag and/or HIV-1/HIV-2 Ab not detected.A test result that is nonreactive does not exclude thepossibility of exposure to or infection with HIV-1 and/orHIV-2. Nonreactive results in this assay for individualswith prior exposure to HIV-1 and/or HIV-2 may be due toantigen and antibody levels that are below the limit ofdetection of this assay.The [employer] HIV Ag/Ab Combo assay result andsupplemental assay results should be interpreted inconjunction with the patient's clinical presentation,history and other laboratory results. If the results areinconsistent with clinical evidence, additional testing issuggested to confirm the result. Blood Venous blood specimen / Unknown 02/24/2024 10:41 AM EST 02/24/2024 2:39 PM EST us Shahana Kidd MD LAB BLOOD ORDERABLES Final Result [facility] [address] [place] [phone] * Thinprep PAP and HPV nRNA E6/E7 (05/08/2022 12:00 AM EST) Clinical Information: Postmenopausal [facility] [employer] LMP: NONE GIVEN [facility] Prev. PAP: NONE GIVEN [facility] Prev. BX: NONE GIVEN [facility] SOURCE: None given [facility] Statement Of Adequacy: [facility] Comment: Satisfactory for evaluation. Endocervical/transformation zone component present. Partially obscuring inflammation Interpretation/ Result: Negative for intraepithelial lesion or malignancy. [facility] [place] [employer] [facility]: [facility] Comment: KN, CT(ASCP) CT screening location: [address] ??[phone] Review Cytotechnolog[employer]: [facility] [place] Comment: WAC, CT(ASCP) CT screening location: [address] ??[phone] (Always Message) [facility] Comment: EXPLANATORY NOTE: The Pap is a [...] HPV nRNA E6/E7 Not Detected Not Detected [facility] Comment: Methodology: Home Security Professional-Mediated Amplification This assay detects E6/E7 viral messenger RNA (mRNA) from 14 high-risk HPV types (16,18,31,33,35,39,45,51,52,56,58,59,66,68). Cervical sources are required for HPV testing. If a vaginal source from a patient who has had a total hysterectomy with removal of cervix was submitted, please contact the testing laboratory for alternative testing options. For additional information, please refer to http://education.my6sense.Gigwalk/faq/RQO962j8 (This link if provided for information/ educational purposes only.) 05/08/2022 05/09/2022 2:2 2 AM EST Narrative [facility] - 05/16/2022 10:38 AM EST FASTING: UNKNOWN Claudia MENJIVAR LAB PATHOLOGY ORDERABLES Final Result [facility] [address] [facility], [place] [address] [facility] [address] [facility], ([address]) [place] [phone] from Last 3 Months or Most Recently Relevant to Health Maintenance Insurance [employer] Care Teams Computer Aided Design Designer Relationship Specialty Start Date End Date Beauzile, Thevenin, MD [address] [place] [phone] PCP - General Internal Medicine 06/13/20
--- OUTSIDE RECORDS SUMMARY | 2024-06-18 11:56 | XMS_ITS | Clinical Summary ---
Author Organization [employer] [facility] it Address [address] [place] [address] Care Team Providers Care Painter Helper Spray Name Role Phone Unavailable Primary Care Provider Unavailabl e Social History Tobacco Use Types Packs/Day Years Used Date Smoking Tobacco: Never Assessed Comments Unknown Sex and Gender Information Value Date Recorded Sex Assigned at Not on file Legal Sex Female 8:26 AM EST Gender Identity Not on file Sexual Orientation Not on file Plan of Treatment Health Maintenance Due Date Last Done Comments Breast Cancer Screening 1960 DTaP,Tdap,and Td Vaccines (1 - Tdap) 07/28/1979 Cervical Cancer Screening: P ap Smear 1981 Pneumococcal Vaccine: 50+ Ye ars (1 of 1 - PCV) 2010 Zoster Vaccines (1 of 2) 2010 COVID-19 Vaccine ( - 2023-2 5 season) 2023 Influenza Vaccine (#1) 2023 [...] patient's age to complete this topic Meningococcal B Vacine Aged Out No lo nger eligible based on patient's age to complete [...]
--- OUTSIDE RECORDS SUMMARY | 2024-06-18 11:56 | XMS_ITS | Encounter Summary ---
Author Organization [employer] Address [address] [facility] 7 h Floor [address] Care Team Providers Care Quality Systems Engineer Name Role Phone Shahana Kidd MD Primary Care Provider [phone] Encounter Details Date Type Department Care Team (Latest Contact Info) Description 02/25/2024 Orders Only [facility] [address] [place], [place] [phone] Shahana Kidd MD [address] [place] [address] Hypercholesterolemia (Primary Dx) Social History Tobacco Use [...] 10:56 AM EST) Triglycerides 105 <150 mg/dL [facility] Comment:Desirable Triglyceri de: less than 150 mg/dLBorderline High Triglyceride 150-199 mg/dLHigh Triglyceride: 200-499 mg/dLVery High Triglyceride: greater than or equal to 5OO mg/dL Cholesterol 298(H) <200 mg/dL [facility] Comment:Desirable Cholestero l: less than 200 mg/dLBorderline High Cholesterol: 200-239 mg/dLHigh Cholesterol: greater than 239 mg/dL LDL Cholesterol Calculated 220(H) <100 mg/dL [facility] Comment:Desirable LDL: less than 100 mg/dLNear Optimal/Above Optimal LDL: 110- 129 mg/dLBorderline High LDL: 130-159 mg/dLHigh LDL: 160-189 mg/dLVery High LDL: greater than or equal to 190 mg/dL HDL Cholesterol 57 >40 mg/dL [facility] Comment:Desirable HDL: great er than 40 mg/dL Note: This HDL assay may give artificially low results in patients with liver disease. Blood Venous blood specimen / Unknown 04/29/2024 10:56 AM EST 04/29/2024 2:17 PM EST us Shahana Kidd MD LAB BLOOD ORDERABLES Final Result [facility] [address] [place] [address] [phone] documented in this encounter Visit Diagnoses Diagnosis Hypercholesterolemia- Primary Pure hypercholesterolemia documented in this encounter Additional Health Concerns Assessment Noted Time PHQ-9 Depression Total Score: 2 02/19/20 24 10:03 AM EDT documented as of this encounter Care Teams Quality Systems Engineer Relationship Specialty Start Date End Date Shahana Kidd MD [address] [place] [phone] PCP - General Internal Medicine 06/13/20 documented as of this encounter
--- OUTSIDE RECORDS SUMMARY | 2024-06-18 11:56 | XMS_ITS | Encounter Summary ---
Author Organization [employer] Address [address] [place] [address] [place] [address] Care Team Providers Care Loader Engineer Name Role Phone Shahana Kidd MD Primary Care Provider [phone] Reason for Visit * Reason Comments Med Refill Encounter Details Date Type Department Care Team ([facility] st Contact Info) Description 06/28/2023 Refill [facility] [address] [place] [address] Shahana Kidd MD [address] [place] [address] Allergy, subsequent encounter Social History Tobacco Use [...] documented as of this encounter Care Teams Loader Engineer Relationship Specialty Start Date End Date Shahana Kidd MD [address] [place] [phone] PCP - General Internal Medicine 06/13/20 documented as of this encounter
--- OUTSIDE RECORDS SUMMARY | 2024-06-18 11:57 | XMS_ITS | Encounter Summary ---
Author Organization [employer] Address [address] [place] [address] [place] [address] Care Team Providers Care Billing Customer Service Representative Name Role Phone Shahana Kidd MD Primary Care Provider [phone]- [phone] Reason for Referral * Imaging (Routine) - Authorized Specialty Diagnoses / Procedures Referred By Contac t Referred To Contact Radiology Diagnoses Tenderness of neck Procedures US Head Neck Soft Tissue Shahana Kidd MD [address] [place] [address] Phone: tel: fax: [facility] [address] [place] [address] Phone: tel: fax: Referral ID Status Reason Start Date Expiration Date V isits Requested Visits Authorized [id number] Authorized 05/20/2024 05/20/2025 1 1 Reason for Visit * Reason Comments Neck Pain Encounter Details Date Type Department Care Team ([facility] st Contact Info) Description 05/20/2024 1:20 PM EST Office Visit [facility] [address] [place], [place] [phone] Shahana Kidd MD [address] [place] [phone] Tenderness of neck (Primary Dx) Social History [...] Free T4 <0.01(L) 0.32 - 4.0 uIU/mL [facility] Blood Venous blood specimen / Unknown 05/20/2024 1:51 PM EST 05/20/2024 2:37 PM EST us Shahana Kidd MD LAB BLOOD ORDERABLES Final Result Performing Organization Address City/[facility]/ZIP Co de Phone Number [facility] [address] [place] [address] [phone] * (ABNORMAL) C-reactive Protein (05/20/2024 1:51 PM EST) C Reactive Protein 4.00(H) < or = 0.50 mg/dL [facility] Blood Venous blood specimen / Unknown 05/20/2024 1:51 PM EST 05/20/2024 2:37 PM EST us Shahana Kidd MD LAB BLOOD ORDERABLES Final Result Performing Organization Address [facility]/ZIP Co de Phone Number [facility] [address] [place] [phone] * (ABNORMAL) Sed Rate by Modified Westergren (05/20/2024 1:51 PM EST) Erythrocyte Sedimentation Rate 67(H) 0 - 20 MM/HR [facility] Comment:Patients with polycy themia and many hemoglobin abnormalitiesmay have depressed sed rates whereas patients with anemiamay have elevated sed rates. Blood Venous blood specimen / Unknown 05/20/2024 1:51 PM EST 05/20/2024 2:37 PM EST us Shahana Kidd MD LAB BLOOD ORDERABLES Final Result [facility] [address] [place], [place] [phone] * CBC auto differential (05/20/2024 1:51 PM EST) Pathologist [facility] White Blood Count 8.0 4.8 - 10.8 X10*3/uL [facility] Red Blood Count 4.40 4.20 - 5.50 X10*6/uL [facility] Hemoglobin 12.7 12.0 - 16.0 g/dl [facility] Hematocrit 39.2 37.0 - 47.0 % [facility] Mean Corpuscular Volume 89.1 80.0 - 98.0 fL [facility] Mean Corpuscular Hemoglobin 28.9 27.0 - 33.0 pg [facility] Mean Corpuscular HGB Conc 32.4 31.0 - 35.0 g/dl [facility] Red Cell Distribution Width 11.6 11.0 - 16.0 % [facility] Platelet Count 255 160 - 400 X10*3/uL [facility] Mean Platelet Volume 9.9 9.4 - 12.3 fL [facility] Neutrophils Percent Auto 69.6 45 - 73 % [facility] Imm Gran Pct Auto 0.2 0.0 - 0.4 % [facility] Lymphocytes Percent Auto 20.8 20 - 40 % [facility] Monocytes Percent Auto 7.2 2 - 11 % [facility] Eosinophils Percent Auto 1.6 0 - 4 % [facility] Basophils Percent Auto 0.6 0 - 2 % [facility] NRBC Pct Auto 0.0 0.0 - 0.2 /100WBC [facility] Neutrophils Absolute Auto 5.6 2.0 - 8.3 x10*3/uL [facility] Imm Gran Abs Auto 0.02 0.00 - 0.03 X10*3/uL [facility] Lymphocytes Absolute Auto 1.7 1.2 - 4.9 X10*3/uL [facility] Monocytes Absolute Auto 0.6 0.1 - 1.2 X10*3/uL [facility] Eosinophils Absolute Auto 0.1 0.0 - 0.4 X10*3/uL [facility] Basophils Absolute Auto 0.1 0.0 - 0.2 X10*3/uL [facility] NRBC Abs Auto 0.000 0.0 - 0.012 X10*3/uL [facility] Blood Venous blood specimen / Unknown 05/20/2024 1:51 PM EST 05/20/2024 2:37 PM EST Shahana Kidd MD LAB BLOOD ORDERABLES Final Result [facility] [address] [place] [phone] [phone] documented in this encounter Visit Diagnoses Diagnosis Tenderness of neck- Primary documented in this encounter Additional Health Concerns Assessment Noted Time PHQ-9 Depression Total Score: 2 02/19/20 24 10:03 AM EDT documented as of this encounter Care Teams Billing Customer Service Representative Relationship Specialty Start Date End Date Shahana Kidd MD [address] [place] [phone] PCP - General Internal Medicine 06/13/20 documented as of this encounter
--- OUTSIDE RECORDS SUMMARY | 2024-06-18 11:57 | XMS_ITS | Encounter Summary ---
Author Organization [employer] Address [address] 7[address] [place] [address] Care Team Providers Care Life Skills Specialist Name Role Phone Shahana Kidd MD Primary Care Provider [phone] Encounter Details Date Type Department Care Team [...] documented as of this encounter Care Teams Life Skills Specialist Relationship Specialty Start Date End Date Shahana Kidd MD [address] [place] [address] PCP - General Internal Medicine 06/13/20 documented as of this encounter
== END ==
LOC: HO.NUCMED 10:17
PROVIDERS: PCP Internal Medicine; Visit Provider Internal Medicine
DX: R79.89 Other specified abnormal findings of blood chemistry (principal)
CPT/HCPCS: 78014; A9516

== ENCOUNTER → 2024-06-18 10:30 | Outpatient (BNV) | payer MEDICAID, SELFPAY | PROVIDERS: PCP Internal Medicine; Visit Provider Radiology Diagnostic Radiology | DX: E03.9 Hypothyroidism, unspecified (principal) | CPT/HCPCS: 78014 ==

== ENCOUNTER 2024-11-30 11:54 | Outpatient (REF) | payer MEDICAID, SELFPAY ==
--- OUTSIDE RECORDS SUMMARY | 2024-11-30 12:22 | XMS_ITS | Encounter Summary ---
Author Organization [employer] Address [address] [facility] 7 [place] [address] Care Team Providers Care Grant Specialist Name Role Phone Shahana Kidd MD Primary Care Provider [phone] Encounter Details Date Type Department Care Team (Latest Contact Info) Description 02/25/2024 Orders Only [facility] P[facility]S [address] [place], [place] [phone] Shahana Kidd MD [address] [place] [address] Hypercholesterolemia (Primary Dx) Social History Tobacco Use [...] 10:56 AM EST) Triglycerides 105 <150 mg/dL [facility] Comment:Desirable Triglyceri de: less than 150 mg/dLBorderline High Triglyceride 150-199 mg/dLHigh Triglyceride: 200-499 mg/dLVery High Triglyceride: greater than or equal to 5OO mg/dL Cholesterol 298(H) <200 mg/dL [facility] Comment:Desirable Cholestero l: less than 200 mg/dLBorderline High Cholesterol: 200-239 mg/dLHigh Cholesterol: greater than 239 mg/dL LDL Cholesterol Calculated 220(H) <100 mg/dL [facility] Comment:Desirable LDL: less than 100 mg/dLNear Optimal/Above Optimal LDL: 110- 129 mg/dLBorderline High LDL: 130-159 mg/dLHigh LDL: 160-189 mg/dLVery High LDL: greater than or equal to 190 mg/dL HDL Cholesterol 57 >40 mg/dL [facility] Comment:Desirable HDL: great er than 40 mg/dL Note: This HDL assay may give artificially low results in patients with liver disease. Blood Venous blood specimen / Unknown 04/29/2024 10:56 AM EST 04/29/2024 2:17 PM EST Shahana Kidd MD LAB BLOOD ORDERABLES Final Result [facility] [address] [place] [address] [phone] documented in this encounter Visit Diagnoses Diagnosis Hypercholesterolemia- Primary Pure hypercholesterolemia documented in this encounter Additional Health Concerns Assessment Noted Time PHQ-9 Depression Total Score: 2 02/19/20 24 10:03 AM EDT documented as of this encounter Care Teams Grant Specialist Relationship Specialty Start Date End Date Shahana Kidd MD [address] [place] [phone] PCP - General Internal Medicine 06/13/20 documented as of this encounter
--- OUTSIDE RECORDS SUMMARY | 2024-11-30 12:22 | XMS_ITS | Clinical Summary ---
Author Organization [employer] [facility] ity Address [address] [place] [address] Care Team Providers Care Embedded Processor Name Role Phone Unavailable Primary Care Provider [...] Vaccines (1 of 2) 2010 COVID-19 Vaccine (1 - 2023-2 5 season) 2023 Depression Screening 04/22/2024 Influenza Vaccine (#1) 2024 RSV Immunization Adult Patie nts (1 - 1-dose 75+ series) 07/28/2035 HIB [...] age to complete this topic Meningococcal B Vaccine Aged Out No l onger eligible based on patient's age to complete this topic RSV Immunization Patients Un omi 20 months Aged Out No longer eligible b ased on patient's age to complete this topic Varicella Vaccines Aged Out No longer eligible based on patient's age to complete this topic
[2024-11-30 14:30] LABS: Appearance Urine Clear; Glucose Urine UA Negative (Negative); PH 6.5 (5.0-9.0); Specific Gravity - Urine 1.010 (1.005-1.025); UMIC TRIGGER UACC YES
[2024-11-30 15:48] LABS: CT PCR Urine NOT DETECTED (Not Detect.); NG PCR Urine NOT DETECTED (Not Detect.)
[2024-12-01 08:47] LABS: HIV Num 1 0.04 S/CO (0.00-0.99); ~HepC Num1 0.08 S/CO (0.00-0.79); ~Hepatitis C Antibody Nonreactive (Nonreactive)
== END 2024-11-30 11:55 | disposition home or self-care (01) ==
LOC: HO.CHCLDS 11:54
PROVIDERS: Visit Provider Internal Medicine
DX: Z11.3 Encounter for screening for infections with a predominantly sexual mode of transmission (principal); Z11.4 Encounter for screening for human immunodeficiency virus [HIV]; Z11.8 Encounter for screening for other infectious and parasitic diseases; Z11.59 Encounter for screening for other viral diseases; Z01.84 Encounter for antibody response examination
CPT/HCPCS: 36415; 81001; 86592; 86787; 86803; 87389; 87491; 87591

== ENCOUNTER → 2024-12-22 09:25 | Outpatient (REF) | payer MEDICAID, SELFPAY ==
--- NOTE | 2024-12-22 09:29 | HM_ITS ---
Conclusion: 1. Patient was monitored for total period of 1 day and 23 hours 2. Baseline was normal sinus rhythm with average heart rate of 63 beats per minute 3. No significant pauses noted but frequent sinus bradycardia noted with 49.3% of the time heart rate below 60 beats per minute 4. Rare PACs noted 5. No patient reported events MTDD
--- OUTSIDE RECORDS SUMMARY | 2024-12-22 10:24 | XMS_ITS | Encounter Summary ---
Author Organization [employer] Address [address] [facility] 7 [place] [address] Care Team Providers Care Assistant Store Director Name Role Phone Shahana Kidd MD Primary Care Provider [phone] Encounter Details Date Type Department Care Team ([facility] st Contact Info) Description 10/03/2023 Orders Only [facility] PEDS [address] [place], [place] [phone] Shahana Kidd MD [address] [place] [address] Allergy, subsequent encounter Social History Tobacco Use [...] documented as of this encounter Care Teams Assistant Store Director Relationship Specialty Start Date End Date Shahana Kidd MD [address] [place] [address] PCP - General Internal Medicine 06/13/20 documented as of this encounter
--- OUTSIDE RECORDS SUMMARY | 2024-12-22 10:24 | XMS_ITS | Encounter Summary ---
Author Organization [employer] Address [address] [place] [address] 7 [place] [address] Care Team Providers Care Pourer Crane Ladle Name Role Phone Shahana Kidd MD Primary Care Provider [phone] Reason for Referral * Imaging (Routine) - Closed Specialty Diagnoses / Procedures Referred By Daniel t Referred To Contact Radiology Diagnoses Low TSH level Procedures US Thyroid Shahana Kidd MD [address] [place] [address] Phone: tel: fax: [address] Phone: tel: fax: Referral ID Status Reason Start Date Expiration Date Visits Re quested Visits Authorized [id number] Closed 05/22/2024 05/22/2025 1 1 * Imaging (Routine) - Closed Specialty Diagnoses / Procedures Referred By Contac t Referred To Contact Radiology Diagnoses Low TSH level Procedures NM Thyroid Uptake Shahana Kidd MD [address] [place] [address] Phone: tel: fax: [address] Phone: tel: fax: Referral ID Status Reason Start Date Expiration Date Visits Re quested Visits Authorized [id number] Closed 05/21/2024 05/21/2025 3 1 * Consultation (Urgent) - Closed Specialty Diagnoses / Procedures Referred By Contac t Referred To Contact Endocrinology Diagnoses Low TSH level Shahana Kidd MD [address] [place] [address] Phone: tel: fax: [facility] [address] [facility] 3rd Floor [address] [place], [place] Phone: tel: fax: Referral ID Status Reason Start Date Expiration Date V isits Requested Visits Authorized [id number] Closed Specialty Services Required 05/20/2024 05/20/2025 1 1 Encounter Details Date Type Department Care Team ([facility] st Contact Info) Description 05/20/2024 Orders Only [facility] [address] [place] [address] Shahana Kidd MD [address] [place] [address] Low TSH level (Primary Dx) Social History [...] yesterday. A referral to Endocrinology wasalso generated. * Result Encounter Note - Shahana Kidd MD - 05/20/2024 8:24 PM EST Please call. The test of the thyroid shows increased uptake which can be indicative of an overactive thyroid or hyperthyroidism. Patient is to keep her appointment with endocrinology as scheduled. documented in this encounter Plan of Treatment Not on file documented as of this encounter Procedures Procedure Name Priority Date/Time Associated Diagnosis Comments AMB REFERRAL TO ENDOCRINOLOGY Urgent 06/24/2024 Low TSH level NM THYROID UPTAKE Routine 06/18/2024 10: 30 AM EST Low TSH level US THYROID Routine 06/02/2024 12:15 PM EST Low TSH level TSI (THYROID STIMULATING IMMUNOGLOBULIN) Routine 05/21/2024 11:22 AM EST Low TSH level T3, TOTAL Routine 05/21/2024 11:22 AM EST Low TSH level documented in this encounter Results * Referral to Endocrinology (06/24/2024) us Shahana Kidd MD OUTPATIENT REFERRAL ORDERAB LES Final Result * NM Thyroid Uptake (06/18/2024 10:30 AM EST) Anatomical Region Laterality Modality Head and Neck Nuclear Medicine 06/18/2024 10:3 0 AM EST Narrative 06/22/2024 9:49 AM EST [place] [address] Nuclear Medicine Report Signed Patient: Kandy Mcdaniels MR#: [id number] 838 : 1960 Acct:[id number] Age/Sex: 63 / F ADM Date: 06/18/24 Loc: [facility] Attending Dr: Shahana Kidd MD Ordering Physician: Shahana Kidd MD Date of Service: 06/18/24 Procedure(s): NM thyroid w uptake Accession Number(s): [id number] cc: Shahana Kidd MD EXAMINATION: NM THYROID UPTAKE AND SCAN CLINICAL INFORMATION: Low TSH COMPARISON: Ultrasound thyroid 06/02/2024 TECHNIQUE: Following the oral administration of 0.284 microcuries of I-123 sodium iodide, thyroid uptake was performed and expressed as a percentage of the administrated dose. Gamma scintillation camera images of the thyroid in the anterior and right and left anterior oblique views were obtained using a pinhole collimator following the administration of 10 mCi Tc-99m pertechnetate. FINDINGS: The uptake is 8.77% at 4 hours and 24.02% at 24 hours. On thyroid imaging there is homogeneous activity seen throughout the right and left thyroid lobes which appear normal size. No focal hypointense or hyper intense lesions/defects visualized. NM/NM thyroid w uptake IMPRESSION: Borderline increased radioactive and uptake at 2 hours but normal at 24 hours. Normal thyroid size with no focal hypo or hyper intense lesions seen. Electronically signed by: Brant Ayoub MD 06/22/2024 09:46 AM EST Dictated By: Brant Ayoub MD Signed By: <Electronically signed by Brant Ayoub MD in OV> 06/22/24 0946 DD/ 1030 TD/TT: 06/19/24 1130 Suction Operator: [facility] Procedure Note Donotuseinterpreter, Image - 06/22/2024 [place] [address] Nuclear Medicine Report Signed Patient: Kandy Mcdaniels AMR#: [id number] : 1Acct:[id number] Age/Sex: 63 / FADM Date: 06/18/24 Loc: [facility] Attending Dr: Shahana Kidd MD Ordering Physician: Shahana Kidd MD Date of Service: 06/18/24 Procedure(s): NM thyroid w uptake Accession Number(s): [id number] cc: Shahana Kidd MD EXAMINATION: NM THYROID UPTAKE AND SCAN CLINICAL INFORMATION: Low TSH COMPARISON: Ultrasound thyroid 06/02/2024 TECHNIQUE: Following the oral administration of 0.284 microcuries of I-123 sodium iodide, thyroid uptake was performed and expressed as a percentage of the administrated dose. Gamma scintillation camera images of the thyroid in the anterior and right and left anterior oblique views were obtained using a pinhole collimator following the administration of 10 mCi Tc-99m pertechnetate. FINDINGS: The uptake is 8.77% at 4 hours and 24.02% at 24 hours. On thyroid imaging there is homogeneous activity seen throughout the right and left thyroid lobes which appear normal size. No focal hypointense or hyper intense lesions/defects visualized. NM/NM thyroid w uptake IMPRESSION: Borderline increased radioactive and uptake at 2 hours but normal at 24 hours. Normal thyroid size with no focal hypo or hyper intense lesions seen. Electronically signed by: Brant Ayoub MD 06/22/2024 09:46 AM EST RP Dictated By: Brant Ayoub MD Signed By: <Electronically signed by Brant Ayoub MD in OV> 06/22/24 0946 DD/ 1030 TD/TT: 06/19/24 1130 Suction Operator: ANDRES us Shahana Kidd MD IM NM PROCEDURES Final Res ult * US Thyroid (06/02/2024 12:15 PM EST) Anatomical Region Laterality Modality Head, Neck Ultrasound 06/02/2024 12:1 5 PM EST Narrative 06/15/2024 11:06 AM EST [place] [address] Ultrasound Report Signed Patient: Kandy Mcdaniels MR#: [id number] : 1960 Acct:[id number] Age/Sex: 63 / F ADM Date: 06/02/24 Loc: HO.US Attending Dr: Shahana Kidd MD Ordering Physician: Shahana Kidd MD Date of Service: 06/02/24 Procedure(s): US thyroid Accession Number(s): [id number] cc: Shahana Kidd MD EXAMINATION: US THYROID [...] than or equal to 1 cm: 0. Drink Mixer nodules are described as follows: 1. Location: [...] Signed By: <Electronically signed by Lavell Snider MD in OV> 06/15/24 1102 DD/ 1215 TD/TT: 06/02/24 1230 Suction Operator: Procedure Note Donotuseinterpreter, Image - 06/15/2024 [place] [address] Ultrasound Report Signed Patient: Kandy Mcdaniels AMR#: [id number] : 1Acct:[id number] Age/Sex: 63 / FADM Date: 06/02/24 Loc: HO.US Attending Dr: Shahana Kidd MD Ordering Physician: Shahana Kidd MD Date of Service: 06/02/24 Procedure(s): US thyroid Accession Number(s): [id number] cc: Shahana Kidd MD EXAMINATION: US THYROID [...] than or equal to 1 cm: 0. Drink Mixer nodules are described as follows: 1. Location: [...] 06/15/24 1102 DD/ 1215 TD/TT: 06/02/24 1230 Suction Operator: us Shahana Kidd MD IMG US PROCEDURES Final Res ult * TSI (Thyroid Stimulating Immunoglobulin) (05/21/2024 11:22 AM EST) Thyroid Stimulating Immunoglobulin <89 <140 % baseline [facility] Comment: Thyroid stimulating immunoglobulins (TSI) [...] hCG concentrationfalls below 40,625 mIU/mL (usually after [id number] gestation).The analytical performance characteristics of thisassay have been determined by [employer] [facility] [place]. The modificationshave not been cleared or approved by the FDA. Thisassay has been validated pursuant to the CLIAregulations and is used for clinical purposes.THIS TEST WAS PERFORMED AT:[employer]/[facility] [place] [address]QDZRMKTPHILOMENA VANCE MD,PHD Blood Venous blood specimen / Unknown 05/21/2024 11:22 AM EST 05/21/2024 2:01 PM EST us Shahana Kidd MD LAB BLOOD ORDERABLES Final Result [facility] [address] [place] [phone] * (ABNORMAL) T3, Total (05/21/2024 11:22 AM EST) T3, Total 184(A) 76 - 181 ng/dL [facility] Comment:THIS TEST WAS PERFOR MED AT:[facility] [place] [id number] POE MD Blood Venous blood specimen / Unknown 05/21/2024 11:22 AM EST 05/21/2024 2:01 PM EST Shahana Kidd MD LAB BLOOD ORDERABLES Final Result [facility] [address] [place] [address] [phone] documented in this encounter Visit Diagnoses Diagnosis Low TSH level- Primary documented in this encounter Additional Health Concerns Assessment Noted Time PHQ-9 Depression Total Score: 2 02/19/20 24 10:03 AM EDT documented as of this encounter Care Teams Pourer Crane Ladle Relationship Specialty Start Date End Date Shahana Kidd MD [address] [place] [address] PCP - General Internal Medicine 06/13/20 documented as of this encounter
--- OUTSIDE RECORDS SUMMARY | 2024-12-22 10:24 | XMS_ITS | Encounter Summary ---
Author Organization [employer] Address [address] [facility] 7 [place] [address] Care Team Providers Care Sumo Wrestler Name Role Phone Shahana Kidd MD Primary Care Provider [phone] Encounter Details Date Type Department Care Team (Latest Contact Info) Description 02/25/2024 Orders Only [facility] PEDS [address] [place], [place] [phone] Shahana Kidd MD [address] [place] [address] Hypercholesterolemia (Primary Dx) Social History Tobacco Use [...] 10:56 AM EST) Triglycerides 105 <150 mg/dL [facility] Comment:Desirable Triglyceri de: less than 150 mg/dLBorderline High Triglyceride 150-199 mg/dLHigh Triglyceride: 200-499 mg/dLVery High Triglyceride: greater than or equal to 5OO mg/dL Cholesterol 298(H) <200 mg/dL [facility] Comment:Desirable Cholestero l: less than 200 mg/dLBorderline High Cholesterol: 200-239 mg/dLHigh Cholesterol: greater than 239 mg/dL LDL Cholesterol Calculated 220(H) <100 mg/dL [facility] Comment:Desirable LDL: less than 100 mg/dLNear Optimal/Above Optimal LDL: 110- 129 mg/dLBorderline High LDL: 130-159 mg/dLHigh LDL: 160-189 mg/dLVery High LDL: greater than or equal to 190 mg/dL HDL Cholesterol 57 >40 mg/dL [facility] Comment:Desirable HDL: great er than 40 mg/dL Note: This HDL assay may give artificially low results in patients with liver disease. Blood Venous blood specimen / Unknown 04/29/2024 10:56 AM EST 04/29/2024 2:17 PM EST Shahana Kidd MD LAB BLOOD ORDERABLES Final Result [facility] [address] [place] [address] [phone] documented in this encounter Visit Diagnoses Diagnosis Hypercholesterolemia- Primary Pure hypercholesterolemia documented in this encounter Additional Health Concerns Assessment Noted Time PHQ-9 Depression Total Score: 2 02/19/20 24 10:03 AM EDT documented as of this encounter Care Teams Sumo Wrestler Relationship Specialty Start Date End Date Shahana Kidd MD [address] [place] [phone] PCP - General Internal Medicine 06/13/20 documented as of this encounter
--- OUTSIDE RECORDS SUMMARY | 2024-12-22 10:24 | XMS_ITS | Encounter Summary ---
Author Organization [employer] Address [address] [facility] 7 [place] [address] Care Team Providers Care Senior Net Developer Architect Name Role Phone Shahana Kidd MD Primary Care Provider [phone]- [phone] Encounter Details Date Type Department Care Team (Latest Contact Info) Description 05/01/2024 Orders Only [facility] MED [facility] PEDS [address] [place], [place] [phone] Shahana Kidd MD [address] [place] [address] Hypercholesterolemia (Primary Dx) Social History Tobacco Use [...] documented as of this encounter Care Teams Senior Net Developer Architect Relationship Specialty Start Date End Date Shahana Kidd MD [address] [place] [address] PCP - General Internal Medicine 06/13/20 documented as of this encounter
--- OUTSIDE RECORDS SUMMARY | 2024-12-22 10:24 | XMS_ITS | Encounter Summary ---
Author Organization [employer] Address [address] [facility] 7 [place] [address] Care Team Providers Care Facilities Painter Name Role Phone Shahana Kidd MD Primary Care Provider [phone]- [phone] Encounter Details Date Type Department Care Team ([facility] st Contact Info) Description 11/23/2024 Orders Only [facility] MED & PEDS [address] [place], [place] [phone] Shahana Kidd MD [address] [place] [address] Social History Tobacco Use Types Packs/Day Years [...] documented as of this encounter Care Teams Facilities Painter Relationship Specialty Start Date End Date Shahana Kidd MD [address] [place] [address] PCP - General Internal Medicine 06/13/20 documented as of this encounter
--- OUTSIDE RECORDS SUMMARY | 2024-12-22 10:24 | XMS_ITS | Encounter Summary ---
Author Organization [employer] Address 75 [facility] 7 [place] [address] Care Team Providers Care Camp Assistant Name Role Phone Shahana Kidd MD Primary Care Provider [phone]- [phone] Encounter Details Date Type Department Care Team (Late st Contact Info) Description 06/30/2024 Orders Only [facility] [address] [place] [address] Shahana Kidd MD [address] [place] [address] Social History Tobacco Use Types Packs/Day Years [...] documented as of this encounter Care Teams Camp Assistant Relationship Specialty Start Date End Date Shahana Kidd MD [address] [place] [phone] PCP - General Internal Medicine 06/13/20 documented as of this encounter
--- OUTSIDE RECORDS SUMMARY | 2024-12-22 10:24 | XMS_ITS | Clinical Summary ---
Author Organization [employer] Address 75 [facility] 7t [place] [address] Care Team Providers Care Electrical Tester Battery Name Role Phone Shahana Kidd MD Primary Care Provider Allergies No known active allergies Medications atorvastatin (Lipitor) 80 MG tabletIndicatio ns:Hypercholest erolemia Take 1 tablet (80 mg) by mouth Once per day. 30 tablet 11 05/01/2024 Active naproxen (Naprosyn) 500 MG tabletIndicatio ns:Tenderness of neck TAKE 1 TABLET(500 MG) BY MOUTH TWICE DAILY 60 tablet 06/15/2024 Active fluticasone (Flonase) 50 MCG/ACT nasal sprayIndication s:Allergy, subsequent encounter SHAKE LIQUID AND USE 1 TO 2 SPRAYS IN EACH NOSTRIL EVERY MORNING 48 g 1 08/13/2024 Active cetirizine (ZyrTEC) 10 MG tabletIndicatio ns:Allergy, subsequent encounter TAKE 1 TABLET BY MOUTH DAILY 90 tablet 11/03/2024 Active Active Problems Problem Noted Date Diagnosed Date Perineal bilateral glands 11/17/2024 Assessment & Plan (11/17/2024 9:45 AM EDT): Bilateral symmetric induration round, lateral from where the location of Bartholin Gland, no signs of infection. Appearance similar to dermatofibroma but negative pinch test. Recommended observation and supportive care, if growing, painful, red, rtc for re-eval and possible bx to help elucidate etiology Hypercholesterolemia 02/25/2024 Allergy 11/05/1992 Encounters Date Type Department Care Team Description 12/02/2024 Results Follow-Up [facility] [address] [facility] [place] [address] Shahana Kidd MD HIV-1/2 Antigen and Antibodies, Fourth Generation, with Reflexes, Hepatitis C Antibody with Reflex to HCV, RNA, Quantitative, Real-Time PCR, RPR (Monitor) with Reflex to Titer, Additional followed-up results: 2 11/30/2024 11:15 AM EDT Office Visit [facility] [address] [place] [address] Shahana Kidd MD Routine screening for STI (sexually transmitted infection) (Primary Dx); Irregular heart rate 11/30/2024 Orders Only [facility] [address] [facility] [place] [phone] Shahana Kidd MD 11/30/2024 Travel 11/23/2024 Orders Only [facility] [address] [facility] [place] [address] Shahana Kidd MD 11/18/2024 Telephone [facility] [address] [facility] [place] [phone] Shahana Kidd MD 11/17/2024 9:20 AM EDT Office Visit [facility] [address] [place] [address] Candace Jonse MD Mass of perineum, female (Primary Dx) 11/17/2024 Travel 11/01/2024 Refill [facility] [address] [place] [address] Shahana Kidd MD Allergy, subsequent encounter from Last 3 Months Immunizations Immunization Administration Dates Next Due Influenza injectable quadrivalent [...] Recorded What is your housing situation today? I have kortney willson 11/30/[address] you li ve. Do you have problems with any of the following? None of the above 11/30/2024 Food Insecurity Answer Date Recorded Within the [...] Sign Reading Time Taken Comments Blood Pressure 124/76 11/30/2024 10:54 AM EDT Pulse 66 11/30/2024 10:54 AM EDT Temperature 36.6 C (97.9 F) 11/30/2024 10:54 AM EDT Respiratory Rate 16 11/30/2024 10:54 AM EDT Oxygen Saturation 99% 11/30/2024 10:54 AM EDT Inhaled Oxygen Concentration - - Weight 74.4 kg (164 lb) 11/30/2024 10:54 AM EDT Height 164 cm (5' 4.57 ) 11/30/2024 10:54 AM EDT Body Mass Index 27.66 11/30/2024 10:54 AM EDT Plan of Treatment Health Maintenance Due Date Last Done Comments CT Colonography 1960 Colonoscopy 1960 FIT 1960 FOBT 1960 Sigmoidoscopy 1960 Mammogram 2000 Pneumococcal Vaccine: 50+ Years (1 of 1 - PCV) 2010 Zoster Vaccines (1 of 2) 2010 COVID-19 Vaccine ( - season) 2024 05/28/2022, 04/27/2021, 08/10/2020, Additional history exists Influenza Vaccine (#1) 2024 , 04/24/2022, 02/19/2018, Additional history exists Alcohol/Substance Use Screening 02/18/2025 02/19/2024 Depression Screening 02/18/2025 02/19/2024, 02/19/20 24 Pap Smear 05/08/2025 05/08/2022 Disability Screening 11/30/2025 11/30/2024 SDOH Screening 11/30/2025 11/30/2024 Tobacco Screening 11/30/2025 11/30/2024 Colorectal Cancer Screening 04/29/2027 FIT DNA/Cologuard 04/29/2027 04/29/2024 Cervical Cancer Screening 05/08/2027 HPV/Cotest 05/08/2027 05/08/2022 DTaP/Tdap/Td Vaccines (3 - Td or Tdap) 05/15/2031 05/15/2021, 09/20/2009 RSV Patients and Patients Aged 60 years or older (1 - 1-dose 75+ series) 07/28/2035 HIV Screening Completed 11/30/2024, 07/2023, 05/15/2021 Hepatitis C Screening Completed 11/30/2024 , 02/24/2024, 05/15/2021 HIB Vaccines Aged Out No longer eligi [...] Procedure Name Priority Date/Time Associated Diagnosis Comments ECG 12-LEAD Routine 11/30/2024 12:03 PM EDT Irregular heart rate URINALYSIS, COMPLETE, WITH REFLEX TO CULTURE Routine 11/30/2024 12:02 PM EDT CHLAMYDIA/TRICHOMON /NEISSERIA GONORRHOEAE, PCR, URINE Routine 11/30/2024 11:59 AM EDT Routine screening for STI (sexually transmitted infection) VARICELLA ZOSTER ANTIBODY, IGG Routine 11/30/2024 11:56 AM EDT Routine screening for STI (sexually transmitted infection) RPR (MONITOR) W/REFL TITER Routine 11/30/2024 11:56 AM EDT Routine screening for STI (sexually transmitted infection) HEPATITIS C AB W/REFL TO HCV RNA, QN, PCR Routine 11/30/2024 11:56 AM EDT Routine screening for STI (sexually transmitted infection) HIV 1/2 ANTIGEN/ANTIBODY, FOURTH GENERATION W/RFL Routine 11/30/2024 11:56 AM EDT Routine screening for STI (sexually transmitted infection) LAB COLOGUARD COLON CANCER SCREEN Routine 04/29/2024 8:15 AM EST Screening for colon cancer THINPREP PAP AND HPV MRNA E6/E7 Routine 05/08/2022 12:00 AM EST from Last 3 Months or Most Recently Relevant to Health Maintenance Results * ECG 12 lead (11/30/2024 12:03 PM EDT) Shahana Zamora MD - 11/30/2024 12:03 PM EDT Heart rate 53 bpm. [place] 35 degrees. Normal sinus rhythm. No sign of left atrial enlargement. No sign of right atrial enlargement. No signs of hypertrophy. No ST elevation or ST depression. Normal EKG. us Shahana Kidd MD ECG ORDERABLES Final Resul t * (ABNORMAL) Urinalysis, Complete, with Reflex to Culture (11/30/2024 12:02 PM EDT) Color Urine Yellow [facility] Appearance Urine Clear [facility] PH 6.5 5.0 - 9.0 [facility] Glucose Urine UA Negative Negative mg/dL [facility] Urine Blood Negative Negative [facility] Specific [place] - Urine 1.010 1.005 - 1.025 [facility] Urine Protein Negative Neg-Trace mg/dL [facility] Urine Ketones Negative Negative mg/dL [facility] Nitrite Urine Negative Negative [facility] Leukocyte Esterase Urine Trace(A) Negative [facility] RBC Urine 0-2 0 - 2 /HPF [facility] Urine WBC 0-5 0 - 5 /HPF [facility] Urine Squamous Epithelial Cell 0-2 0 - 2 /HPF [facility] Urine Bacteria None Seen None Seen [facility] Hyaline Casts, Urine 0-2 0 - 2 /LPF [facility] 11/30/2024 12:0 2 PM EDT 11/30/2024 2:14 PM EDT Narrative [facility] - 11/30/2024 2:41 PM EDT [id number], Clean Catch us Shahana Kidd MD LAB URINE ORDERABLES Final Result [facility] [address] [place] [phone] [phone] * Chlamydia/N. Gonorrhoeae, PCR, Urine (11/30/2024 11:59 AM EDT) CT PCR, Urine NOT DETECTED Not Detect. [facility] Comment:A not detected test result does not exclude the possibilityof infection because test results can be affected byimproper specimen collection, concurrent antibiotic therapy,or the number of organisms in the specimen which may bebelow the sensitivity of the test. As with many diagnostictests, results from the Xpert CT/NG assay should beinterpreted in conjunction with other laboratory andclinical data available to the clinician.The Xpert CT/NG assay should not be used for the evaluationof suspected sexual abuse or for other medico-legalindications. Additional testing is recommended in anycircumstance when false positive or false negative resultscould lead to adverse medical, social or psychologicalconsequences. NG PCR, Urine NOT DETECTED Not Detect. [facility] Comment:A not detected test result does not exclude the possibilityof infection because test results can be affected byimproper specimen collection, concurrent antibiotic therapy,or the number of organisms in the specimen which may bebelow the sensitivity of the test. As with many diagnostictests, results from the Xpert CT/NG assay should beinterpreted in conjunction with other laboratory andclinical data available to the clinician.The Xpert CT/NG assay should not be used for the evaluationof suspected sexual abuse or for other medico-legalindications. Additional testing is recommended in anycircumstance when false positive or false negative resultscould lead to adverse medical, social or psychologicalconsequences. Urine (Urine, Random) 11/30/2024 11:59 AM EDT 11/30/2024 2:12 PM EDT us Shahana Kidd MD LAB URINE ORDERABLES Final Result Performing Organization Address [facility] Co de Phone Number [facility] [address] [place] [phone] * Hepatitis C Antibody with Reflex to HCV, RNA, Quantitative, Real-Time PCR (11/30/2024 11:56 AM EDT) Hepatitis C Antibody Nonreactive Nonreactive [facility] Comment:Antibodies to HCV no t detected; does not exclude early acuteHCV infection. Blood Venous blood specimen / Unknown 11/30/2024 11:56 AM EDT 11/30/2024 2:22 PM EDT us Shahana Kidd MD LAB BLOOD ORDERABLES Final Result Performing Organization Address [facility] Co de Phone Number [facility] [address] [place] [phone] * RPR (Monitor) with Reflex to??Titer (11/30/2024 11:56 AM EDT) RPR (Monitor) w/Refl Titer NON-REACTI VE NON-REACT [facility] Comment:THIS TEST WAS PERFOR MED AT:[employer] [address] [phone] POE MD Rapid Plasma Reagin Ab Titer TNP [facility] Blood Venous blood specimen / Unknown 11/30/2024 11:56 AM EDT 11/30/2024 2:22 PM EDT us Shahana Kidd MD LAB BLOOD ORDERABLES Final Result Performing Organization Address [facility]/ZIP Co de Phone Number [facility] [address] [place] [address] [phone] * HIV-1/2 Antigen and Antibodies, Fourth Generation, with Reflexes (11/30/2024 11:56 AM EDT) HIV AB/AG Nonreactive Nonreactive [facility] Comment:HIV-1 p24 Ag and/or HIV-1/HIV-2 Ab not detected.A test result that is nonreactive does not exclude thepossibility of exposure to or infection with HIV-1 and/orHIV-2. Nonreactive results in this assay for individualswith prior exposure to HIV-1 and/or HIV-2 may be due toantigen and antibody levels that are below the limit ofdetection of this assay.The [employer] StudioniVIDDIX HIV Ag/Ab Combo assay result andsupplemental assay results should be interpreted inconjunction with the patient's clinical presentation,history and other laboratory results. If the results areinconsistent with clinical evidence, additional testing issuggested to confirm the result. Blood Venous blood specimen / Unknown 11/30/2024 11:56 AM EDT 11/30/2024 2:22 PM EDT us Shahana Kidd MD LAB BLOOD ORDERABLES Final Result Performing Organization Address [facility] Co de Phone Number [facility] [address] [place] [address] [phone] * Varicella Zoster Antibody, IgG (11/30/2024 11:56 AM EDT) Varicella IgG Antibody 2.73 S/CO [facility] Comment:Signal to Cut-off S/ CO Interpretation --------- <1.00 Negative - Antibody not detected > or = 1.00 Positive - Antibody detected A positive result indicates that the patient has antibody to VZV but does not differentiate between an active or past infection. The clinical diagnosis must be interpreted in conjunction with the clinical signs and symptoms of the patient. This assay reliably measures immunity due to previous infection but may not be sensitive enough to detect antibodies induced by vaccination. Thus, a negative result in a vaccinated individual does not necessarily indicate susceptibility to VZV infection. A more sensitive test for vaccination-induced immunity is Varicella Zoster Virus Antibody Immunity Screen, ACIF.THIS TEST WAS PERFORMED AT:[facility] [place] [phone] POE MD Blood Venous blood specimen / Unknown 11/30/2024 11:56 AM EDT 11/30/2024 2:22 PM EDT Shahana Kidd MD LAB BLOOD ORDERABLES Final Result [facility] [address] [place] [phone] * Cologuard?? colon cancer screening (04/29/2024 8:15 AM EST) Cologuard Result Negative Negative 05/07/19 10:15 AM EST [facility] (CLIA #:[id number]) Comment: NEGATIVE TEST RESULT. A negative Cologuard result indicates a low likelihood that a colorectal cancer (CRC) or advanced adenoma (adenomatous polyps with more advanced pre-malignant features) is present. The chance that a person with a negative Cologuard test has a colorectal cancer is less than 1 in 1500 (negative predictive value >99.9%) or has an advanced adenoma is less than 5.3% (negative predictive value 94.7%). These data are based on a prospective cross-sectional study of 10,000 individuals at average risk for colorectal cancer who were screened with both Cologuard and colonoscopy. (Nohemi Jaime al, N Engl J Med 2014;370(14):6427-2381) The normal value (reference range) for this assay is negative. COLOGUARD RE-SCREENING RECOMMENDATION: Periodic colorectal cancer screening is an important part of preventive healthcare for asymptomatic individuals at average risk for colorectal cancer. Following a negative Cologuard result, the [place] Cancer Society and U.S. Multi-Society Task Force screening guidelines recommend a Cologuard re-screening interval of 3 years. References: [place] [employer] Society Guideline for Colorectal Cancer Screening: https://www.cancer.org/cancer/sslxe-ffydgw-ddswol/lgclmxlpa-tgbpvhfxx-nxwjupu/ac s-rec ommendations.html.; [place], [place], Alex McallisterK, Colorectal Cancer Screening: Recommendations for Physicians and Patients from the U.S. Multi-Society Task Force on Colorectal Cancer Screening , Am J Gastroenterology 2017; 112:8027-5336. TEST DESCRIPTION: Composite algorithmic analysis of stool DNA-biomarkers with hemoglobin immunoassay. Quantitative values of individual biomarkers are not [...] (Nohemi Jaime al, N Engl J Med 2014;370(14):0066-0921.) Cologuard may produce a false negative or false positive result (no colorectal cancer or precancerous polyp present at colonoscopy follow up). A negative Cologuard test result does not guarantee the absence of CRC or advanced adenoma (pre-cancer). The current Cologuard screening interval is every 3 years. ([place] Cancer Society and U.S. Multi-Society Task Force). Cologuard performance data in a 10,000 patient pivotal study using colonoscopy as the reference method can be accessed at the following location: www.[employer]/results. Additional description of the Cologuard test process, warnings and precautions can be found at www.colAdar ITrd.com. Stool specimen (specimen) 04/29/2024 8:15 AM EST 05/01/2024 12:16 PM EST Shahana Kidd MD LAB MOLECULAR DIAGNOSTICS O ANI Final Result [facility] (CLIA #:[id number]) [place] [address], * Thinprep PAP and HPV nRNA E6/E7 (05/08/2022 12:00 AM EST) Clinical Information: Postmenopausal [facility] LMP: NONE GIVEN [facility] Prev. PAP: NONE GIVEN [facility] Prev. BX: NONE GIVEN [facility] SOURCE: None given [facility] Statement Of Adequacy: [employer] Comment: Satisfactory for evaluation. Endocervical/transformation zone component present. Partially obscuring inflammation Interpretation/ Result: Negative for intraepithelial lesion or malignancy. [facility] Cytotechnologis t: [employer] Comment: KN, CT(ASCP) CT screening location: [place] [address] Review Cytotechnologis t: [employer] [place] [facility] Comment: [place], CT(ASCP) CT screening location: [place] [address] (Always Message) C[employer] Tech Comment: EXPLANATORY NOTE: The Pap is a [...] HPV nRNA E6/E7 Not Detected Not Detected [employer] Comment: Methodology: Aircraft Layout Worker-Mediated Amplification This assay detects E6/E7 viral messenger RNA (mRNA) from 14 high-risk HPV types (16,18,31,33,35,39,45,51,52,56,58,59,66,68). Cervical sources are required for HPV testing. If a vaginal source from a patient who has had a total hysterectomy with removal of cervix was submitted, please contact the testing laboratory for alternative testing options. For additional information, please refer to http://education.TwentyFour6/faq/ZQL028r8 (This link if provided for information/ educational purposes only.) 05/08/2022 05/09/2022 2:2 2 AM EST Narrative [facility] - 05/16/2022 10:38 AM EST FASTING: UNKNOWN Claudia Ayala CNM LAB PATHOLOGY ORDERABLES Final Result [facility] [address], [place] [address] [facility] [address] [facility], ([address]) [place] [address] from Last 3 Months or Most Recently Relevant to Health Maintenance Insurance C3 Care Teams Electrical Tester Battery Relationship Specialty Start Date End Date Shahana Kidd MD [address] [place] [phone] PCP - General Internal Medicine 06/13/20
--- OUTSIDE RECORDS SUMMARY | 2024-12-22 10:24 | XMS_ITS | Encounter Summary ---
Author Organization [employer] Address 75 [facility] 7 [place] [address] Care Team Providers Care Learning Support Specialist Name Role Phone Shahana Kidd MD Primary Care Provider [phone]- [phone] Reason for Visit * Reason Onset Date Comments Call Back Request 05/22/2024 Encounter Details Date Type Department Care Team ([facility] st Contact Info) Description 05/22/2024 Telephone [facility] [address] [place] [address] Shahana Kidd MD [address] [place] [address] Call Back Request Social History Tobacco Use [...] - 05/22/2024 10:41 AM EST TC from [facility] requesting once U/S results has been received to fax to their office [phone] * Telephone Encounter - Nae Marin - 05/22/2024 9:38 AM EST Tc from Gurmeet with [facility] requesting clarification on ultrasound that pt needs to get done for NM THYROID UPTAKE and TENDERNESS OF NECK. Please contact Gurmeet at [phone] documented in this encounter Plan of Treatment Not on file documented as of this encounter Visit Diagnoses Not on filedocumented in this encounter Additional Health Concerns Assessment Noted Time PHQ-9 Depression Total Score: 2 02/19/20 24 10:03 AM EDT documented as of this encounter Care Teams Learning Support Specialist Relationship Specialty Start Date End Date Shahana Kidd MD [address] [place] [phone] PCP - General Internal Medicine 06/13/20 documented as of this encounter
--- OUTSIDE RECORDS SUMMARY | 2024-12-22 10:24 | XMS_ITS | Encounter Summary ---
Author Organization [employer] Address [address] [place] [address] [place] [address] Care Team Providers Care Inspector And Sorter Name Role Phone Shahana Kidd MD Primary Care Provider [phone]- [phone] Reason for Visit * Reason Comments Med Refill Encounter Details Date Type Department Care Team ([facility] st Contact Info) Description 06/28/2023 Refill [facility] [address] [place] [address] Shahana Kidd MD [address] [place] [address] Allergy, subsequent encounter Social History Tobacco Use [...] documented as of this encounter Care Teams Inspector And Sorter Relationship Specialty Start Date End Date Shahana Kdid MD [address] [place] [phone] PCP - General Internal Medicine 06/13/20 documented as of this encounter
--- OUTSIDE RECORDS SUMMARY | 2024-12-22 10:24 | XMS_ITS | Encounter Summary ---
Author Organization [employer] Address 75 [facility] 7 [place] [address] Care Team Providers Care Dust Puller Name Role Phone Shahana Kidd MD Primary Care Provider [phone]- [phone] Encounter Details Date Type Department Care Team ([facility] st Contact Info) Description 12/02/2024 Results Follow-Up [facility] [address] [place] [address] Shahana Kidd MD [address] [place] [address] HIV-1/2 Antigen and Antibodies, Fourth Generation, with Reflexes, Hepatitis C Antibody with Reflex to HCV, RNA, Quantitative, Real-Time PCR, RPR (Monitor) with Reflex to Titer, Additional followed-up results: 2 Social History Tobacco Use Types Packs/Day Years [...] documented as of this encounter Care Teams Dust Puller Relationship Specialty Start Date End Date Shahana Kidd MD [address] [place] [address] PCP - General Internal Medicine 06/13/20 documented as of this encounter
--- OUTSIDE RECORDS SUMMARY | 2024-12-22 10:24 | XMS_ITS | Clinical Summary ---
Author Organization [facility] Address [address] [place] [address] Care Team Providers Care Furnace Mechanic Name Role Phone Unavailable Primary Care Provider [...] 2010 Zoster Vaccines (1 of 2) 2010 Depression Screening 04/22/2024 COVID-19 Vaccine (1 - 2023-2 5 season) 2024 Influenza Vaccine (#1) 2024 RSV Immunization Adult [...]
== END ==
LOC: HO.CARD 09:25
PROVIDERS: PCP Internal Medicine; Visit Provider Internal Medicine
DX: I49.8 Other specified cardiac arrhythmias (principal)
CPT/HCPCS: 93225

== ENCOUNTER → 2024-12-22 09:29 | Outpatient (BNV) | payer MEDICAID, SELFPAY | PROVIDERS: PCP Internal Medicine; Visit Provider Internal Medicine Cardiovascular Disease | DX: I49.1 Atrial premature depolarization (principal) | CPT/HCPCS: 93227 ==